=== PATIENT | male | born 1955 | race Caucasian/White ===

== ENCOUNTER 2016-11-03 07:48 | Observation (INO) ==
[2016-11-03] MEDS ORDERED: Tetracaine 0.5% OPTH 80 DROP/4 ML BOTTLE LEFT EYE ONE (08:03)
[2016-11-03] MEDS ORDERED: Fluorescein Sodium STRIP OP ONE (08:03)
--- NOTE | 2016-11-03 08:40 | Emergency Department Note ---
Disposition Clinical Impression: Symptomatic bradycardia, Atypical chest pain Corneal abrasion Qualifiers: Encounter type: initial encounter Laterality: left Qualified Code(s): S05.02XA - Injury of conjunctiva and corneal abrasion without foreign body, left eye, initial encounter Disposition: Admitted As Inpatient Condition: Fair Referrals: Papito Sun MD [Primary Care Provider] - Forms: ED Satisfaction Letter Time of Disposition: 10:45 Eye Problem HPI - General Chief complaint: ED Eye Problems Stated complaint: L eye pain Time Seen by Provider: 11/03/16 08:02 Source: patient Limitations: no limitations Nursing Notes Reviewed: Yes Vital Signs Reviewed: Yes - History of Present Illness HPI Narrative: Alert and oriented 61-year-old male originally presents for complaints of left side pain, redness, burning, and a foreign body sensation. He states that symptoms began yesterday evening and gradually worsened. He states that when he awoke this morning, his vision had greatly decreased out of the left eye and he had felt more pain and burning. He denies any purulent drainage or discharge. He denies any recent upper respiratory infections. He denies any activities that could have made him more prone to an ocular foreign body. Immediately After my time spent with him for an eye exam including fluorescein staining and a Hitchcock lamp inspection, the patient walked out of his room and told me that he is now experiencing substernal chest pain that radiates into the middle of his upper back. He states that he has a previous cardiac history including myocardial infarction. He denies any other associated symptoms. Specifically, he denies any shortness of breath, palpitations, fever, chills, nausea, diaphoresis, or any other concerns. He states this pain feels like a "squeezing" type pressure that he rates an 8 out of 10 on a 10 point scale. Pt Subjective Complaint: eye pain, eye redness, foreign body Onset (ago): day(s) (yesterday evening) Duration: gradually worsening Eye Symptoms: burning, redness, pain, foreign body sensation, blurry vision Mechanism: none Pain Severity: moderate If Pain, Quality: burning Associated symptoms: Reports: none Treatments Prior to Arrival: none - Related Data Patient Tetanus UTD: Yes Previous Rx's Medication Instructions Recorded Metaxalone [Skelaxin] 800 mg PO TID #30 tablet 01/01/15 Allergies Allergy/AdvReac Type Severity Reaction Status Date / Time ceftriaxone [From Rocephin] Allergy Hives Verified 11/03/16 08:01 celecoxib [From Celebrex] Allergy Hives Verified 11/03/16 08:01 methocarbamol [From Robaxin] Allergy Hives Verified 11/03/16 08:01 morphine Allergy Hives Verified 11/03/16 08:01 moxifloxacin [From Avelox] Allergy Hives Verified 11/03/16 08:01 Penicillins Allergy Swelling Verified 11/03/16 08:01 of Lip/Tongue/Throat Sulfa (Sulfonamide Allergy Hives Verified 11/03/16 08:01 Antibiotics) tramadol AdvReac Vomiting Verified 11/03/16 08:01 All systems ED: reviewed and negative except as stated. Constitutional: Denies: fever, chills, weakness, weight change Eyes: Reports: as per HPI, eye pain, vision change, other (Left eye redness). Denies: eye discharge ENT ED: Denies: ear pain, throat pain, dental pain, hearing loss, epistaxis, congestion, dysphagia Cardiovascular: Reports: as per HPI, chest pain. Denies: palpitations, dyspnea on exertion, edema, syncope Respiratory: Denies: cough, dyspnea, wheezes, hemoptysis, stridor Gastrointestinal: Denies: abdominal pain, nausea, vomiting, diarrhea, constipation, hematemesis, melena, hematochezia Genitourinary: Denies: urgency, dysuria, frequency, hematuria Musculoskeletal: Denies: back pain, neck pain, arthralgia, myalgia Integumentary: Denies: rash, abrasion, lesions Neurological: Denies: headache, weakness, numbness, paresthesias, confusion, abnormal gait, vertigo Psychiatric: Denies: anxiety, depression, suicidal thoughts, homicidal thoughts , auditory hallucinations, visual hallucinations Endocrine: Denies: fatigue Hematological/Lymphatic: Denies: easy bleeding, easy bruising Allergic/Immunologic: Denies: facial swelling, urticaria Past Medical History - Past Medical History Attestation: Yes The following information was validated with the patient. Source: patient, nursing notes reviewed Medical history: Reports: hyperlipidemia, hypertension, myocardial infarction, thyroid disease, other Surgical history: Reports: cholecystectomy, hip replacement, other Psychiatric history: Reports: anxiety - Social History Smoking Status: Former smoker Smokeless Tobacco Status: No Alcohol use: Reports: none Drug use: Reports: none Physical Exam - General Limitations: no limitations General appearance: alert, in no apparent distress - Head Head exam: atraumatic, normocephalic, normal inspection - Eye Eye exam: Present: PERRL, EOMI, conjunctival injection (Left eye). Absent: nystagmus - ENT ENT exam: mucous membranes moist - Neck Neck exam: Present: normal inspection, full ROM, trachea midline - Chest Chest inspection: Present: normal inspection, symmetric chest wall rise - Respiratory Respiratory exam: Present: normal lung sounds bilaterally. Absent: respiratory distress, wheezes, stridor, accessory muscle use, prolonged expiratory phase - Cardiovascular Cardiovascular exam: Present: regular rate, normal rhythm, normal heart sounds - Abdominal Exam Abdominal exam: Present: soft, Non-Tender, normal bowel sounds. Absent: tenderness, distention, guarding, rebound, rigidity - Extremities Exam Extremities exam: Present: normal inspection, full ROM. Absent: tenderness, pedal edema - Neurological Exam Neurological exam: Present: alert, oriented X3 - Psychiatric Psychiatric exam: Present: normal affect, normal mood - Skin Skin exam: Present: warm, dry, intact, normal color Course Course Narrative: Wood's lamp examination with foreseen staining reveals uptake that resembles a corneal abrasion that progresses laterally across the lateral aspect of the left iris to the medial aspect of the left iris. This abrasion does directly overlie the pupil. 0841: The patient states that his substernal chest pain began immediately after rising from a supine to a sitting position after the hitchcock lamp exam. An EKG was immediately obtained. Immediately after obtaining the EKG, the patient states to the ED senior mechanical technician that his pain has not resolved. Nonetheless, we will proceed with a cardiac workup. I have discussed this patient's case and laboratory results with Dr. Paez. Dr. Paez recommends admission to the hospitalist service for further evaluation of symptomatic bradycardia, especially given the patient's previous cardiac history and heart score of 4. 1010: I spoke with Dr. Shepherd of the hospitalist service. Dr. Shepherd accepts the patient under her service for further evaluation and observation of the patient's substernal chest pain, and symptomatic bradycardia. - Consultations Consultation #1: I spoke with Dr. Salazar, ophthalmology canceling and cutting control clerk. Dr. Salazar recommends erythromycin ointment every 2-[address] Salazar states that if the patient is discharged home, he will be happy to see him in the office. Dr. Salazar goes on to state that if the patient is admitted, he will attempt to see the patient in-house. I will notify Dr. Salazar of the patient's disposition. Time: 08:51 Vital Signs Temperature 97.4 F L 11/03/16 07:58 Pulse Rate 54 11/03/16 07:58 Respiratory Rate 16 11/03/16 07:58 Blood Pressure 170/83 11/03/16 07:58 O2 Sat by Pulse Oximetry 96 11/03/16 07:58 Temperature 97.4 F L 11/03/16 07:58 Pulse Rate 52 11/03/16 09:45 Respiratory Rate 16 11/03/16 09:45 Blood Pressure 156/104 11/03/16 09:45 O2 Sat by Pulse Oximetry 94 11/03/16 09:45 Oxygen Delivery Oxygen Delivery Room Air Eye - Medical Records Medical records reviewed: Yes I reviewed the patient's medical records. - Lab Data Lab results reviewed: Yes I reviewed the patient's lab results. Lab results narrative: Laboratory Last Values WBC 7.1 K/mcL (4.3-11.1) 11/03/16 08:47 RBC 5.13 M/mcL (4.19-5.50) 11/03/16 08:47 Hgb 15.4 g/dL (12.9-16.9) 11/03/16 08:47 Hct 47.4 % (37.5-50.1) 11/03/16 08:47 MCV 92.4 fL (83.0-100.0) 11/03/16 08:47 MCH 30.0 pg (28.0-33.3) 11/03/16 08:47 MCHC 32.5 g/dL (31.6-35.5) 11/03/16 08:47 RDW 14.1 % (11.5-14.5) 11/03/16 08:47 Plt Count 236 K/mcL (140-400) 11/03/16 08:47 MPV 9.8 fL (9.4-12.4) 11/03/16 08:47 Immature Gran % 0.3 % (0-4) 11/03/16 08:47 Seg Neutrophils % 65.8 % 11/03/16 08:47 Lymphocytes % 19.0 % 11/03/16 08:47 Monocytes % 11.6 % 11/03/16 08:47 Eosinophils % 2.3 % 11/03/16 08:47 Basophils % 1.0 % 11/03/16 08:47 Neutrophils # 4.7 K/mcL (1.6-8.9) 11/03/16 08:47 Lymphocytes # 1.3 K/mcL (0.6-4.6) 11/03/16 08:47 Monocytes # 0.8 K/mcL (0.0-1.3) 11/03/16 08:47 Eosinophils # 0.2 K/mcL (0.0-0.6) 11/03/16 08:47 Basophils # 0.1 K/mcL (0.0-0.2) 11/03/16 08:47 PT 11.3 Seconds (9.4-12.1) 11/03/16 08:47 INR 1.0 11/03/16 08:47 APTT 32.9 Seconds (26.0-36.0) 11/03/16 08:47 Sodium 139 mEq/L (136-145) 11/03/16 08:47 Potassium 4.1 mEq/L (3.5-4.5) 11/03/16 08:47 Chloride 105 mEq/L (98-109) 11/03/16 08:47 Carbon Dioxide 27 mEq/L (19-29) 11/03/16 08:47 BUN 14 mg/dL (8-26) 11/03/16 08:47 Creatinine 1.21 mg/dL (0.72-1.25) 11/03/16 08:47 Est GFR ( Amer) > 60 (> 60) 11/03/16 08:47 Est GFR (Non-Af Amer) > 60 (> 60) 11/03/16 08:47 BUN/Creatinine Ratio 12 (6-26) 11/03/16 08:47 Glucose 102 mg/dL (70-99) H 11/03/16 08:47 Calculated Osmolality 289 (280-300) 11/03/16 08:47 Calcium 9.5 mg/dL (8.6-10.8) 11/03/16 08:47 Troponin I 0.02 ng/mL (0-0.03) 11/03/16 08:47 B-Natriuretic Peptide 26 pg/mL (0-100) 11/03/16 08:47 Result diagrams: 11/03/16 08:47 11/03/16 08:47 Lab Results 11/03/16 11/03/16 11/03/16 Range/Units 08:47 08:47 08:47 WBC 7.1 (4.3-11.1) K/mcL RBC 5.13 (4.19-5.50) M/mcL Hgb 15.4 (12.9-16.9) g/dL Hct 47.4 (37.5-50.1) % MCV 92.4 (83.0-100.0) fL MCH 30.0 (28.0-33.3) pg MCHC 32.5 (31.6-35.5) g/dL RDW 14.1 (11.5-14.5) % Plt Count 236 (140-400) K/mcL MPV 9.8 (9.4-12.4) fL Immature Gran % 0.3 (0-4) % Seg Neutrophils % 65.8 % Lymphocytes % 19.0 % Monocytes % 11.6 % Eosinophils % 2.3 % Basophils % 1.0 % Neutrophils # 4.7 (1.6-8.9) K/mcL Lymphocytes # 1.3 (0.6-4.6) K/mcL Monocytes # 0.8 (0.0-1.3) K/mcL Eosinophils # 0.2 (0.0-0.6) K/mcL Basophils # 0.1 (0.0-0.2) K/mcL PT 11.3 (9.4-12.1) Seconds INR 1.0 APTT 32.9 (26.0-36.0) Seconds Sodium (136-145) mEq/L Potassium (3.5-4.5) mEq/L Chloride (98-109) mEq/L Carbon Dioxide (19-29) mEq/L BUN (8-26) mg/dL Creatinine (0.72-1.25) mg/dL Est GFR ( Amer) (> 60) Est GFR (Non-Af Amer) (> 60) BUN/Creatinine Ratio (6-26) Glucose (70-99) mg/dL Calculated Osmolality (280-300) Calcium (8.6-10.8) mg/dL Troponin I (0-0.03) ng/mL B-Natriuretic Peptide 26 (0-100) pg/mL 11/03/16 11/03/16 Range/Units 08:47 08:47 WBC (4.3-11.1) K/mcL RBC (4.19-5.50) M/mcL Hgb (12.9-16.9) g/dL Hct (37.5-50.1) % MCV (83.0-100.0) fL MCH (28.0-33.3) pg MCHC (31.6-35.5) g/dL RDW (11.5-14.5) % Plt Count (140-400) K/mcL MPV (9.4-12.4) fL Immature Gran % (0-4) % Seg Neutrophils % % Lymphocytes % % Monocytes % % Eosinophils % % Basophils % % Neutrophils # (1.6-8.9) K/mcL Lymphocytes # (0.6-4.6) K/mcL Monocytes # (0.0-1.3) K/mcL Eosinophils # (0.0-0.6) K/mcL Basophils # (0.0-0.2) K/mcL PT (9.4-12.1) Seconds INR APTT (26.0-36.0) Seconds Sodium 139 (136-145) mEq/L Potassium 4.1 (3.5-4.5) mEq/L Chloride 105 (98-109) mEq/L Carbon Dioxide 27 (19-29) mEq/L BUN 14 (8-26) mg/dL Creatinine 1.21 (0.72-1.25) mg/dL Est GFR ( Amer) > 60 (> 60) Est GFR (Non-Af Amer) > 60 (> 60) BUN/Creatinine Ratio 12 (6-26) Glucose 102 H (70-99) mg/dL Calculated Osmolality 289 (280-300) Calcium 9.5 (8.6-10.8) mg/dL Troponin I 0.02 (0-0.03) ng/mL B-Natriuretic Peptide (0-100) pg/mL - Radiology Data Radiology results reviewed: Yes I reviewed the patient's radiology results. Chest X-Ray 11/03/16 08:34 IMPRESSION: No evidence of acute cardiopulmonary disease. D/ / Matthew De La Torre MD / Matthew De La Torre MD Interpreting Provider: Matthew De La Torre MD - EKG Data EKG attestation: Yes I reviewed and interpreted this EKG. EKG results narrative: EKG reviewed by Dr. Paez as well. EKG shows a sinus bradycardia at a rate of 49 bpm. No ectopy. No STEMI. MI interval 173, QRS duration 107, QT/QTC 440 /411, P/R/T axes
[2016-11-03 08:54] LABS: Basophils # 0.1 K/mcL (0.0-0.2); Eosinophils # 0.2 K/mcL (0.0-0.6); Eosinophils % 2.3 %; Hematocrit 47.4 % (37.5-50.1); Hemoglobin 15.4 g/dL (12.9-16.9); Immature Granulocytes % 0.3 % (0-4); Lymphocytes # 1.3 K/mcL (0.6-4.6); Mean Corpuscular HGB Conc 32.5 g/dL (31.6-35.5); Mean Corpuscular Volume 92.4 fL (83.0-100.0); Mean Platelet Volume 9.8 fL (9.4-12.4); Monocytes # 0.8 K/mcL (0.0-1.3); Monocytes % 11.6 %; Neutrophils # 4.7 K/mcL (1.6-8.9); Platelet Count 236 K/mcL (140-400); Red Blood Count 5.13 M/mcL (4.19-5.50); Red Cell Distribution Width 14.1 % (11.5-14.5); Segmented Neutrophils % 65.8 %
[2016-11-03 09:00] LABS: Prothrombin Time 11.3 Seconds (9.4-12.1)
[2016-11-03 09:03] LABS: Activated Partial Thrombo Time 32.9 Seconds (26.0-36.0)
[2016-11-03 09:08] LABS: BUN/Creatinine Ratio 12 (6-26); Blood Urea Nitrogen 14 mg/dL (8-26); Calcium 9.5 mg/dL (8.6-10.8); Carbon Dioxide 27 mEq/L (19-29); Chloride 105 mEq/L (98-109); Glucose 102 mg/dL (70-99); Osmolality,Calculated 289 (280-300); Potassium 4.1 mEq/L (3.5-4.5); Sodium 139 mEq/L (136-145); eGFR For African Americans > 60 (> 60); eGFR For Non-African Americans > 60 (> 60)
[2016-11-03] MEDS ORDERED: Albuterol 2.5 MG/3 ML NEBULIZER IH PRN (11:22)
[2016-11-03] MEDS ORDERED: Acetaminophen 325 MG TABLET PO PRN (11:24)
[2016-11-03] MEDS ORDERED: Naloxone 0.4 MG/ML INJ IVP PRN (11:24)
--- NOTE | 2016-11-03 12:25 | Internal Med History&Physical ---
Date of Encounter: 11/03/16 Time of Encounter: 12:23 Assessment and Plan (1) Atypical chest pain Current visit: Yes Status: Acute Atypical, non-persistent patient with multiple risk factors, including hx of smoking, HLD, HTN, age, valvular disease Trend troponin Obtain ECHO Stress test a.m Initial EKG with sinus bradycardia, no ST segment changes Cardiology consult should there be an abnormal result (2) Corneal abrasion Current visit: Yes Status: Acute opthalmology contacted by ER Continue Erythromycin ointment No visual impairment Follow with Ophthalmology after discharge from hospital Qualifiers: Encounter type: initial encounter Laterality: left Qualified Code(s): S05.02XA - Injury of conjunctiva and corneal abrasion without foreign body, left eye, initial encounter (3) Symptomatic bradycardia Current visit: Yes Status: Acute Suspect oculo-cardiac reflex This may result from manipulation of his eyes during his eye exam patient is not on any BB at home Continue to monitor HR and BP (4) HTN (hypertension) Current visit: Yes Status: Chronic Controlled, continue home meds Qualifiers: Hypertension type: essential hypertension Qualified Code(s): I10 - Essential (primary) hypertension (5) COPD (chronic obstructive pulmonary disease) Current visit: Yes Status: Chronic Not in acute exacerbation Continue home meds Qualifiers: COPD type: unspecified COPD Qualified Code(s): J44.9 - Chronic obstructive pulmonary disease, unspecified (6) Atrial fibrillation Current visit: Yes Status: Chronic States patient has Afib in records from 2013 and on follow up with Prop Setter- Dr. Wan Patient denies knowing this he is on ASA only, continue same EKG in this admission with Sinus bradycardia Continue telemetry Discussion of anticoagulation therapy Qualifiers: Atrial fibrillation type: paroxysmal Qualified Code(s): I48.0 - Paroxysmal atrial fibrillation (7) Aortic valve defect Current visit: Yes Status: Chronic Patient with essentially absent S2 Suspect AR Follow ECHO and cardiology eval Internal Medicine - H&P: HPI Chief complaint: Chest pain Admitted From: Home Plans for Post Hospital Care: Home History of present illness: Mr. Gilbert is a 61 year old male Patient presented to the ER with complains of foreign body in the L eye and while being worked up developed one episode of chest pain, said to have been sharp, rated as 6-7/10. radiated to his back, and resolved spontaneously . He did not have any nausea, vomiting, diaphoresis, dizziness. he had one episode of bradycardia, captured on EKG as sinus, VR of 49. At time of review, chest pain had resolved He reports a history of intermittent chest pains for the past week for which he did not seek intervention because it was "mild". he denies shortness of breath, no leg swelling, no orthopnea, no PND. He denies abdominal, urologic or neurological symptoms Work up in the ER was unremarkable he is placed on observation for chest pain r/o ACS Patient reports hx of " a valve disorder", HLD, HTN, cHFpEF, Hypothyroidism, Chronic low back pain, Afib (noted on PCI since 2011, not on anticoagulation for unknown reasons) he had a negative cath in 2011, last ECHO per chart ws 2012 which showed mild aortic regurgication , normal EF and mild diastolic dysfunction He quit smoking several years ago Past Med Surg Social Fam HX - Past Medical History Medical history: hyperlipidemia, hypertension, myocardial infarction, thyroid disease, other Psychiatric history: anxiety - Past Surgical History Surgical History: cholecystectomy, hip replacement, other - Social History Smoking Status: Former smoker Smokeless Tobacco Status: No Alcohol use: none Drug use: none Internal Medicine - H&P: Meds Albuterol Neb [Proventil Neb] 2.5 mg IH Q4HR PRN 11/03/16 [History] Albuterol Sulfate [Ventolin Hfa] 2 puff IH Q4H PRN 11/03/16 [History] Aspirin 81 mg PO DAILY 11/03/16 [History] Atorvastatin Calcium [Lipitor] 80 mg PO HS 11/03/16 [History] Cetirizine HCl [All Day Allergy] 10 mg PO DAILY 11/03/16 [History] Cholestyramine 4 gm PO BIDAC 11/03/16 [History] DULoxetine [Cymbalta] 30 mg PO DAILY 11/03/16 [History] Etodolac [Lodine] 400 mg PO BID PRN 11/03/16 [History] Fluticasone Propionate Nasal [Flonase] 2 spray NS DAILY 11/03/16 [History] Fluticasone/Vilanterol [Breo Ellipta 200-25 Mcg INH] 1 puff IH DAILY 11/03/16 [ History] Furosemide [Lasix] 20 mg PO DAILY 11/03/16 [History] Gabapentin [Neurontin] 600 mg PO TID 11/03/16 [History] Isosorbide MONOnitrate (24 HR) [Imdur] 60 mg PO DAILY 11/03/16 [History] Levothyroxine [Synthroid] 112 mcg PO 0630 11/03/16 [History] Lisinopril [Zestril] 5 mg PO DAILY 11/03/16 [History] Montelukast [Singulair] 10 mg PO DAILY 11/03/16 [History] Nitroglycerin [Nitrostat] 0.4 mg SL AD PRN 11/03/16 [History] Omeprazole [PriLOSEC] 20 mg PO DAILY 11/03/16 [History] Oxycodone HCl/Acetaminophen [Percocet 7.5-325 mg Tablet] 1 tab PO Q8-12H PRN 07/18 [History] Allergies ceftriaxone [From Rocephin] Allergy (Verified 11/03/16 08:01) Hives celecoxib [From Celebrex] Allergy (Verified 11/03/16 08:01) Hives methocarbamol [From Robaxin] Allergy (Verified 11/03/16 08:01) Hives morphine Allergy (Verified 11/03/16 08:01) Hives moxifloxacin [From Avelox] Allergy (Verified 11/03/16 08:01) Hives Penicillins Allergy (Verified 11/03/16 08:01) Swelling of Lip/Tongue/Throat Sulfa (Sulfonamide Antibiotics) Allergy (Verified 11/03/16 08:01) Hives tramadol Adverse Reaction (Verified 11/03/16 08:01) Vomiting All Systems PM: A 10-system review of systems was performed and is negative for pertinent findings except as documented above in the HPI. - Constitutional Constitutional: no chills, no fever(s), no night sweats - EENT Eyes: irritation Nose, mouth and throat: no dysphagia, no nasal discharge, no neck pain, no sore throat - Cardiovascular Cardiovascular ROS IM: as per HPI - Respiratory Respiratory: as per HPI - Gastrointestinal Gastrointestinal: no abdominal pain, no diarrhea, no hematemesis, no hematochezia, no melena, no nausea, no vomiting - Musculoskeletal Musculoskeletal ROS IM: back pain - Integumentary Integumentary IM: no rash, no unusual bruising - Neurological Neurological ROS: no confusion, no convulsions, no focal weakness, no numbness, no tingling, no tremor(s) - Hematologic/Lymphatic Hematologic/Lymphatic: no easy bruising - Constitutional Vitals: Temp Pulse Resp BP Pulse Ox 97.3 F L 47 16 145/83 97 11/03/16 11:45 11/03/16 11:45 11/03/16 11:45 11/03/16 11:45 11/03/16 11:45 General appearance: Present: A&O X 3, pleasant, no acute distress - Head Head exam: Present: atraumatic, normocephalic - Eye Eye exam: Present: PERRL, conjuntiva pink, sclera anicteric Pupils: Present: PERRL - Neck Neck exam general surgery: Present: supple, trachea midline. Absent: lymphadenopathy - Respiratory Respiratory exam: Present: CTAB. Absent: accessory muscle use, rales, rhonchi, wheezes - Cardiovascular Cardiovascular exam: Present: RRR, +S1, +S2 (Very soft, almost inaudible S2). Absent: diastolic murmur, gallop, rubs, systolic murmur - GI/Abdominal GI/Abdominal exam: Present: normal bowel sounds, soft, no peritoneal signs. Absent: distended, tenderness - Extremities Exam Extremities exam: Present: warm, radial pulses palpable and symetrical. Absent : calf tenderness, cyanotic, pedal edema - Back Exam Additional comments: Scoliosis - Neurological Exam Neurological exam: Present: alert, CN II-XII intact, oriented X3, no focal deficits. Absent: pronater drift, facial droop, speech deficit - Skin Skin exam: Present: dry, intact Internal Med - H&P Results - Labs CBC & Chem 7: 11/03/16 08:47 11/03/16 08:47
[2016-11-03] MEDS: *HR* OxyCODONE/APAP 7.5/325 TABLET PO PRN (12:54)
[2016-11-03] MEDS: Erythromycin OPTH Oint LEFT EYE SCH ×3 (15:22→20:20)
[2016-11-03] MEDS: Gabapentin 300 MG CAPSULE PO SCH ×2 (15:27→20:19)
[2016-11-03] MEDS: Cholestyramine 4 GM POWD.PACK PO SCH (15:28)
[2016-11-04] MEDS ORDERED: Regadenoson 0.4 MG/5 ML SYRINGE IVP ONE (06:11)
[2016-11-04] MEDS: Cholestyramine 4 GM POWD.PACK PO SCH ×2 (10:00→15:18)
[2016-11-04] MEDS: Erythromycin OPTH Oint LEFT EYE SCH ×4 (10:00→20:49)
[2016-11-04] MEDS: Fluticasone Propionate Nasal 50 MCG/SPRAY BOTTLE NS SCH (11:52)
[2016-11-04] MEDS: Loratadine 10 MG TABLET PO SCH (11:54)
[2016-11-04] MEDS: Aspirin 81 MG TAB.CHEW PO SCH (11:54)
[2016-11-04] MEDS: Gabapentin 300 MG CAPSULE PO SCH ×3 (11:54→20:48)
[2016-11-04] MEDS: *HR* OxyCODONE/APAP 7.5/325 TABLET PO PRN (11:54)
[2016-11-04] MEDS: Furosemide 20 MG TABLET PO SCH (11:54)
[2016-11-04] MEDS: Isosorbide MONOnitrate (24 HR) 60 MG TAB.ER.24H PO SCH (11:54)
[2016-11-04] MEDS: (Fluticasone/Vilanterol [Breo Ellipta 200-25 Mcg Inh]) IH SCH (11:55)
--- NOTE | 2016-11-04 12:53 | Nuclear Medicine Stress Report ---
Regadenoson Nuclear Stress Name: Fausto Gilbert Date of Study: 11/04/2016 Date: 1955 Ht: 68.0 in Medical Record#: [id number] Age: 61 Wt: 215.0 lb Gender: Male Order #: [id number] Location: [facility] Room: [facility] Supervising Provider: Jeramie Garrison CNP Reading Physician: Rivera Singh DO, FAC, FASAK Ordering Physician: Leidy Bond CNP Primary Care Physician: Papito Sun MD Stress Technologist: Alexia Campos RRT Superintendent Storage Area: Blaise Peterson Impression: Pharmacologic stress ECG is non-diagnostic for ischemia due to submaximal HR. Gated EF = 55%. Medium sized, moderate intensity, reversible perfusion defect involving the basal to mid inferior and adjacent inferoseptal and inferolateral segments. Findings are consistent with ischemia. Ordering provider notified via [email or web address]. History: Hypertension Hypercholesteremia Stress Test Summary: Stress Test Type: Pharmacologic Regadenoson 0.4mg/5ml given IV Baseline Information: Initial Heart Rate: 50 Blood Pressure: 132/82 Stress Information: Test Terminated Due to (primary): As per protocol Maximum Blood Pressure: 118/60 Maximum Heart Rate: 79 Percent Maximum Heart Rate Achieved: 50 Double Product: 9322 METS Reached: 1 Symptoms: No chest symptoms Nuclear Summary: SPECT myocardial perfusion imaging using Tc99m Sestamibi given intravenously was performed at rest and following cardiac stress testing. The resting images were obtained following initial dose of 10.7 mCi. Following stress an additional dose of 34.8 mCi was given at peak exercise or 30 seconds post regadenoson infusion. Medication Given: Time Medication Dose Units Route Findings: Stress Note * Resting ECG demonstrated normal sinus rhythm. * No baseline arrhythmias were noted. * Pharmacologic stress ECG is non-diagnostic for ischemia due to submaximal HR. * No arrhythmias were noted during stress. * Patient had no chest pain during stress. Hemodynamic responses * Normal hemodynamic responses to pharmacologic stress. Study Quality * Study quality is average. Gated EF % * Gated EF = 55%. Left Ventricle * The left ventricle is not dilated. * LVEDV = 108 mL. NORMALS * Normal wall motion. * Normal Segmental Perfusion in rest. Inferior Perfusion Stress * The basal to md inferior and adjacent inferoseptal/inferolateral segments show a moderate reduction in perfusion. TID * No evidence of transient ischemic dilatation. TID ratio * TID ratio = 0.95. Lung Uptake * There is no evidence of increase lung uptake. Updated by Rivera Singh DO, DEANA, REBECA, USMAN on 11/04/2016 12:46:56 PM electronically signed on 11/04/2016 12:48:27 PM with status of Final
--- NOTE | 2016-11-04 14:34 | Internal Med Progress Note ---
Date of Encounter: 11/04/16 Time of Encounter: 11:40 - Assessment and plan (1) Symptomatic bradycardia Current Visit: Yes Status: Acute Assessment and plan: Patient reports couple month history of midsternal chest tightness with reading to the left jaw, shortness of breath, and feeling clammy. Patient had episode as this lasting a couple of minutes yesterday while in the emergency department. He told staff of chest pain, he was put on monitor and had an EKG showing bradycardia. He noticed that when his pulse came up into the high 50s and low 60s, the pressure resolved. Echocardiogram showed LVEF of 50% with normal LV chamber size and thickness although they were not well visualized. There is normal diastolic dysfunction and normal RV structure and function. Mild Aortic regurgitation was noted. Stress test showed gated EF of 55% with a medium-size, moderate intensity, reversible perfusion defect involving the basal to mid inferior wall and adjacent inferior septal and inferolateral segments. Dr. Singh and I discussed this. Troponins have been negative Patient will be nothing by mouth tonight after midnight for LHC in the morning. Patient and family are aware, questions answered. Continue telemetry Treat chest pain when necessary Continue medications. LHC/cardiology consult in the morning. Chest X-Ray 11/03/16 08:34 IMPRESSION: No evidence of acute cardiopulmonary disease. D/ / Matthew De La Torre MD / Matthew De La Torre MD Interpreting Provider: Matthew De La Torre MD (2) Atypical chest pain Current Visit: Yes Status: Acute Assessment and plan: Patient states initial onset was in 2001 after his OR. It has become increasingly worse over the last couple of months. He states that the pain can last anywhere from 2-3 minutes to 15-20 minutes. Pain is not worse with movement, eating, inspiration, or palpitation. Plan as above (3) Corneal abrasion Current Visit: Yes Status: Acute Assessment and plan: Patient was in the emergency department for corneal abrasion. Ophthalmology was consulted by the emergency department. Patient is not wearing a patch, there is no corneal injection, no vision disturbance. Patient denies pain, there is no drainage. Continue erythromycin ointment and follow-up with ophthalmology after discharge. Qualifiers: Encounter type: initial encounter Laterality: left Qualified Code(s): S05.02XA - Injury of conjunctiva and corneal abrasion without foreign body, left eye, initial encounter (4) HTN (hypertension) Current Visit: Yes Status: Chronic Assessment and plan: Chronic. Goal in inpatient setting. Continue home medication. Qualifiers: Hypertension type: essential hypertension Qualified Code(s): I10 - Essential (primary) hypertension (5) COPD (chronic obstructive pulmonary disease) Current Visit: Yes Status: Chronic Assessment and plan: No acute exacerbation. Continue home medications. Titrate oxygen as needed to maintain sats greater than 92% Nebulizer treatment as needed. Qualifiers: COPD type: unspecified COPD Qualified Code(s): J44.9 - Chronic obstructive pulmonary disease, unspecified (6) Atrial fibrillation Current Visit: Yes Status: Chronic Assessment and plan: Patient is unaware of having A. fib. He is on aspirin. Normal sinus rhythm on the monitor at this time. Cardiology consult tomorrow. Continue telemetry Qualifiers: Atrial fibrillation type: paroxysmal Qualified Code(s): I48.0 - Paroxysmal atrial fibrillation (7) Aortic valve defect Current Visit: Yes Status: Chronic Assessment and plan: AR noted on echocardiogram. Cardiology consult in the morning - Time Spent With Patient less than 15 minutes - Subjective Interval history: Patient reports approximate 2-3 month history of midsternal chest tightness with radiation to the left jaw, shortness of breath, and feeling clammy. Patient states that it happens a couple of times a week and states that it can last anywhere from 2-3 minutes to 15-20 minutes. He states initially the pain started 2002 after he had his OR, but was sporadic. He states that he has become more frequent over the last couple of months. He says that he had chest pain yesterday after he sat up from a lying position while he was in the emergency room. He was seen in the emergency room for corneal abrasion and was found to be bradycardic with his chest pain. He said that he noticed that the chest pain stopped when his pulse currently the high 50s and 60s. Today I did hear S1 and S2, rhythm was regular, there was no gallop, click, murmur noted. Patient denies chest pain at this time. Echocardiogram was negative, stress test showed area of ischemia. Cardiology consult was already in. Patient will be nothing by mouth after midnight tonight for [facility] in the morning. 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 - Constitutional Vitals: Temp Pulse Resp BP Pulse Ox 97.5 F L 59 16 140/77 98 11/04/16 12:15 11/04/16 12:15 11/04/16 13:44 11/04/16 12:15 11/04/16 13:44 General appearance: Present: A&O X 3, pleasant, no acute distress, answers questions appropriately - Head Head exam: Present: normal inspection - Eye Eye exam: Present: normal appearance, conjuntiva pink - ENT ENT exam: Present: mucous membranes moist, normal exam - Neck Neck exam general surgery: Present: normal inspection. Absent: lymphadenopathy , tenderness - Respiratory Respiratory exam: Present: decreased breath sounds, CTAB. Absent: chest wall tenderness, rales, respiratory distress, rhonchi, stridor, wheezes - Cardiovascular Cardiovascular exam: Present: RRR, +S1, +S2. Absent: bradycardia, clicks, diastolic murmur, irregular rhythm, systolic murmur, tachycardia - GI/Abdominal GI/Abdominal exam: Present: normal bowel sounds, soft. Absent: hepatomegaly, tenderness - Extremities Exam Extremities exam: Present: normal inspection, warm, radial pulses palpable and symetrical. Absent: pedal edema, tenderness - Neurological Exam Neurological exam: Present: alert, oriented X3. Absent: facial droop, speech deficit Internal Medicine: Result - Labs CBC & Chem 7: 11/03/16 08:47 11/03/16 08:47 Labs: Cardiac Enzymes 11/03/16 11/03/16 Range/Units 13:42 20:44 Troponin I 0.00 0.01 (0-0.03) ng/mL - ABG Interpretation ABG results: PT/INR, D-dimer PT 11.3 Seconds (9.4-12.1) 11/03/16 08:47 Consult Discharge Plan - Plan Referrals: Papito Sun MD [Primary Care Provider] -
[2016-11-05] MEDS: Cholestyramine 4 GM POWD.PACK PO SCH ×2 (07:30→16:26)
[2016-11-05] MEDS: Gabapentin 300 MG CAPSULE PO SCH ×3 (07:52→20:15)
[2016-11-05] MEDS: Loratadine 10 MG TABLET PO SCH (07:53)
[2016-11-05] MEDS: Erythromycin OPTH Oint LEFT EYE SCH ×4 (07:53→20:15)
[2016-11-05] MEDS: Furosemide 20 MG TABLET PO SCH (07:53)
[2016-11-05] MEDS: *HR* OxyCODONE/APAP 7.5/325 TABLET PO PRN ×2 (07:54→16:27)
[2016-11-05] MEDS: Isosorbide MONOnitrate (24 HR) 60 MG TAB.ER.24H PO SCH (07:54)
[2016-11-05] MEDS: Aspirin 81 MG TAB.CHEW PO SCH (07:54)
[2016-11-05] MEDS: (Fluticasone/Vilanterol [Breo Ellipta 200-25 Mcg Inh]) IH SCH (08:00)
[2016-11-05] MEDS: Fluticasone Propionate Nasal 50 MCG/SPRAY BOTTLE NS SCH (08:02)
--- NOTE | 2016-11-05 09:26 | Pre-Sedation Evaluation ---
Pre-sedation evaluation - Pre-sedation checklist Date of procedure: 11/05/16 Procedure: heart cath Recent Vitals: Last Vital Signs Temp 98.0 F 11/05/16 07:51 Pulse 50 11/05/16 07:51 Resp 14 11/05/16 07:51 BP 131/77 11/05/16 07:51 Pulse Ox 96 11/05/16 07:51 H&P (including ROS) documented in medical record: Yes Previous reaction to sedatives/anesthetics: No Dietary Status: NPO after Midnight Dentition: No loose teeth or bridges ASA Classification *see protocol: CLASS II-Mild systemic disease Plan of Care: Pt appropriate candidate for procedure/moderate/conscious sedation , Risks/benefits of procedure/sedation discussed w/ patient/family
--- NOTE | 2016-11-05 10:09 | Cardiology Consult Note ---
<Evens Jang R - Last Filed: 11/05/16 10:05> Date of Encounter: 11/05/16 Time of Encounter: 10:05 Assessment and Plan (1) Abnormal stress test Current Visit: Yes Status: Acute Stress test yesterday moderate sized moderate intensity reversible perfusion defect involving basal-mid inferior and adjacent inferoseptal and inferolateral segments consistent with ischemia. LHC with minimal/mild disease in 2013 at [facility]. Given new stress abnormality, recommend [facility] to further evaluate. R/B/A discussed. Pt agrees to proceed. LHC today. ASA, Statin. No BB due to bradycardia. Troponins negative x 3. One episode of CP in ED without recurrence. (2) Sinus bradycardia Current Visit: Yes Status: Acute 24 hr tele AVG HR 60, lowest HR 45 yesterday morning at 10AM. Nocturnal bradycardia in 40s, but known untreated KAMAR. Recommend treatment. Currently stable with no significant bradycardia to warrant PPM. Avoid AV jadiel blockers. C today. (3) Atrial fibrillation Current Visit: Yes Status: Chronic Hx of A-Fib, appears to be maintaining SR during stay. CHADSVASC 1 (HTN). ASA only. Qualifiers: Atrial fibrillation type: paroxysmal Qualified Code(s): I48.0 - Paroxysmal atrial fibrillation Discussion w patient/family: The assessment and plan as outlined above was discussed with the patient and/or family members who expressed understanding and agreement. All questions were answered. Thank you for involving us in the care of your patient. Please call with any questions. I will discuss all the above with Dr. Wan and make changes as necessary. History of Present Illness Consult date: 11/05/16 Requesting physician: Rosalia Rosas Consult reason: abnormal stress Chief complaint: chest pain History of present illness: Mr. Gilbert is a 61 year old male with PMH of untreated KAMAR, A-Fib on ASA only, HTN, HLD that presented to the ER with complains of foreign body in the L eye and while being worked up developed one episode of chest pain, said to have been sharp, rated as 6-7/10. radiated to his back and right jaw, and resolved spontaneously. He had an episode of bradycardia with HR in 40s at that time and CP resolved when HR increased. No recurrence of chest pain. Troponins negative x 4. He had LHC in 2013 with minimal disease at [facility]. Stress test yesterday showed gated EF 55%, moderate sized, moderate intensity reversible perfusion defect involving basal-mid inferior and adjacent inferoseptal and inferolateral segments consistent with ischemia. 24 hr tele AVG HR 60, minimum HR 45 at 10AM yesterday. Echo EF 50%, technically suboptimal due to poor windows. Mild AR. Past Med Surg Social Fam HX - Past Medical History Medical history: hyperlipidemia, hypertension, myocardial infarction, thyroid disease, other Psychiatric history: anxiety - Past Surgical History Surgical History: cholecystectomy, hip replacement, other - Social History Smoking Status: Former smoker Smokeless Tobacco Status: No Alcohol use: none Drug use: none Medications and Allergies Albuterol Neb [Proventil Neb] 2.5 mg IH Q4HR PRN 11/03/16 [History] Albuterol Sulfate [Ventolin Hfa] 2 puff IH Q4H PRN 11/03/16 [History] Aspirin 81 mg PO DAILY 11/03/16 [History] Atorvastatin Calcium [Lipitor] 80 mg PO HS 11/03/16 [History] Cetirizine HCl [All Day Allergy] 10 mg PO DAILY 11/03/16 [History] Cholestyramine 4 gm PO BIDAC 11/03/16 [History] DULoxetine [Cymbalta] 30 mg PO DAILY 11/03/16 [History] Etodolac [Lodine] 400 mg PO BID PRN 11/03/16 [History] Fluticasone Propionate Nasal [Flonase] 2 spray NS DAILY 11/03/16 [History] Fluticasone/Vilanterol [Breo Ellipta 200-25 Mcg INH] 1 puff IH DAILY 11/03/16 [ History] Furosemide [Lasix] 20 mg PO DAILY 11/03/16 [History] Gabapentin [Neurontin] 600 mg PO TID 11/03/16 [History] Isosorbide MONOnitrate (24 HR) [Imdur] 60 mg PO DAILY 11/03/16 [History] Levothyroxine [Synthroid] 112 mcg PO 0630 11/03/16 [History] Lisinopril [Zestril] 5 mg PO DAILY 11/03/16 [History] Montelukast [Singulair] 10 mg PO DAILY 11/03/16 [History] Nitroglycerin [Nitrostat] 0.4 mg SL AD PRN 11/03/16 [History] Omeprazole [PriLOSEC] 20 mg PO DAILY 11/03/16 [History] Oxycodone HCl/Acetaminophen [Percocet 7.5-325 mg Tablet] 1 tab PO Q8-12H PRN 07/18 [History] Allergies ceftriaxone [From Rocephin] Allergy (Verified 11/03/16 08:01) Hives celecoxib [From Celebrex] Allergy (Verified 11/03/16 08:01) Hives methocarbamol [From Robaxin] Allergy (Verified 11/03/16 08:01) Hives morphine Allergy (Verified 11/03/16 08:01) Hives moxifloxacin [From Avelox] Allergy (Verified 11/03/16 08:01) Hives Penicillins Allergy (Verified 11/03/16 08:01) Swelling of Lip/Tongue/Throat Sulfa (Sulfonamide Antibiotics) Allergy (Verified 11/03/16 08:01) Hives tramadol Adverse Reaction (Verified 11/03/16 08:01) Vomiting All Systems Review: A 10-system review of systems was performed and is negative for pertinent findings except as documented above in the HPI. - Cardiovascular Cardiovascular: as per HPI, chest pain at rest, radiating jaw, neck or arm pain Physical Examination Vital Signs, Last 4 Hours Temp Pulse Resp BP Pulse Ox 11/05/16 07:51 98.0 F 50 14 131/77 96 Vital Signs Temp Pulse Resp BP Pulse Ox 11/05/16 07:51 98.0 F 50 14 131/77 96 11/05/16 03:19 97.8 F 55 16 96/60 96 11/04/16 23:11 97.6 F 55 16 101/57 94 11/04/16 20:45 96 11/04/16 19:09 97.6 F 65 16 113/68 96 11/04/16 16:03 97.8 F 61 15 115/74 96 11/04/16 13:44 16 98 11/04/16 12:15 97.5 F L 59 16 140/77 97 Intake and Output 11/04/16 11/05/16 11/05/16 23:59 07:59 15:59 Other: Weight 97.995 kg Blood Glucose* 97 90 Patient Weight 11/05/16 23:59 Weight 97.995 kg General: Conversant, No Apparent Distress HEENT: Atraumatic, Normocephaly, Mucus Membranes Moist Neck: No JVD, Normal carotid pulses Cardiac: Reg Rate and Rhythm, Normal S1 and S2, No Murmur Lungs: Normal Breath Sounds, No Wheeze, Rales, Rhonchi Neuro: Alert and responsive, No focal deficits noted Abdomen: Soft, Non-Tender Skin: No rashes noted on visualized skin Musculoskeletal: No Chest Wall Tenderness Extremities: No Clubbing, No Cyanosis, No Edema, Normal Pulses Results 11/03/16 08:47 11/03/16 08:47 Active Medications Acetaminophen (Tylenol) 650 mg PO Q6HR PRN PRN Reason: Mild Pain (1-3) Stop: 05/05/17 11:25 Albuterol Sulfate (Proventil Neb) 2.5 mg IH Q4HR PRN; Protocol PRN Reason: Shortness Of Breath Stop: 05/05/17 11:23 Albuterol Sulfate (Albuterol Inhaler) 2 puff IH Q4H PRN PRN Reason: Shortness Of Breath Stop: 05/05/17 11:23 Last Admin: 11/04/16 13:43 Dose: 2 puff Aspirin (Aspirin) 81 mg PO DAILY [facility] Stop: 05/06/17 09:01 Last Admin: 11/05/16 07:54 Dose: 81 mg Atorvastatin Calcium (Lipitor) 80 mg PO HS [facility] Stop: 05/05/17 21:01 Last Admin: 11/04/16 20:48 Dose: 80 mg Cholestyramine Resin (Cholestyramine) 4 gm PO BIDAC [facility] Stop: 05/05/17 16:31 Last Admin: 11/05/16 07:30 Dose: Not Given Duloxetine HCl (Cymbalta) 30 mg PO DAILY [facility] Stop: 05/06/17 09:01 Last Admin: 11/05/16 07:53 Dose: 30 mg Erythromycin (Erythromycin Opth Oint) 1 appl LEFT EYE Q4HWA [facility] Stop: 05/05/17 12:01 Last Admin: 11/05/16 07:53 Dose: 1 appl Fluticasone Propionate (Flonase) 50 mcg NS DAILY [facility] PRN Reason: Protocol Stop: 05/06/17 09:01 Last Admin: 11/05/16 08:02 Dose: Not Given Furosemide (Lasix) 20 mg PO DAILY [facility] Stop: 05/06/17 09:01 Last Admin: 11/05/16 07:53 Dose: 20 mg Gabapentin (Neurontin) 600 mg PO TID [facility] Stop: 05/05/17 15:01 Last Admin: 11/05/16 07:52 Dose: 600 mg Isosorbide Mononitrate (Imdur) 60 mg PO DAILY [facility] Stop: 05/06/17 09:01 Last Admin: 11/05/16 07:54 Dose: 60 mg Levothyroxine Sodium (Synthroid) 112 mcg PO 0630 [facility] Stop: 05/06/17 06:31 Last Admin: 11/05/16 04:57 Dose: 112 mcg Lisinopril (Zestril) 5 mg PO DAILY [facility] PRN Reason: Protocol Stop: 05/06/17 09:01 Last Admin: 11/05/16 07:53 Dose: 5 mg Loratadine (Claritin) 10 mg PO DAILY [facility] Stop: 05/06/17 09:01 Last Admin: 11/05/16 07:53 Dose: 10 mg Montelukast Sodium (Singulair) 10 mg PO DAILY [facility] Stop: 05/06/17 09:01 Last Admin: 11/05/16 07:54 Dose: 10 mg Naloxone HCl (Narcan) 0.4 mg IVP Q2MIN PRN PRN Reason: Opioid Reversal Stop: 05/05/17 11:25 Omeprazole (Prilosec) 20 mg PO 0630 [facility] PRN Reason: Protocol Stop: 05/06/17 06:31 Last Admin: 11/05/16 04:57 Dose: 20 mg Oxycodone/Acetaminophen (Percocet 7.5/325) 1 each PO Q8H PRN PRN Reason: Moderate Pain Stop: 05/05/17 11:23 Last Admin: 11/05/16 07:54 Dose: 1 each Pharmacy Profile Note (Patient Taking Own Medication) 0 each IH DAILY [facility] Stop: 05/06/17 09:01 Last Admin: 11/05/16 08:00 Dose: Not Given - Imaging and Cardiology Stress Test: report reviewed Echo: report reviewed - EKG Interpretation EKG results cardiology: personally reviewed (Sinus oumar, HR 49), other (24 hr tele AVG HR 60, SR, no significant pauses, lowest HR 45) Consult Discharge Plan - Plan Referrals: Papito Sun MD [Primary Care Provider] - <Armida Wan - Last Filed: 11/05/16 10:20> Date of Encounter: 11/05/16 Assessment and Plan Discussion w patient/family: The assessment and plan as outlined above was discussed with the patient and/or family members who expressed understanding and agreement. All questions were answered. Thank you for involving us in the care of your patient. Please call with any questions. History of Present Illness History of present illness: Mr. Gilbert is a 61 year old male All Systems Review: A 10-system review of systems was performed and is negative for pertinent findings except as documented above in the HPI. Physical Examination Vital Signs, Last 4 Hours Temp Pulse Resp BP Pulse Ox 11/05/16 07:51 98.0 F 50 14 131/77 96 Results 11/03/16 08:47 11/03/16 08:47 - Attending Attestation I examined this patient and my medical decision-making was reviewed with the LOGGING CREW SUPERVISOR/PA/Advanced Practice Nurse/Resident Physician. I agree with the documented findings, disposition and treatment plan. Mr. Gilbert is known to me from the outpatient setting. Apparently he came in with a corneal abrasion and complained of chest pain, underwent a stress test which resulted abnormal. The patient and I discussed these findings. He does have known CAD (cath 2011, 2013) and risk factors (male gender, HTN, HPL, borderline DM, history of smoking). We discussed consideration of proceeding with LHC for definitive diagnosis of pain. The R/B/A of proceeding with LHC were discussed. The patient expressed understanding and consent to proceed.
--- NOTE | 2016-11-05 12:36 | Electrocardiograph Report ---
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 : 1955 Requested By: Christophe Hilario Order Number: [id number] Reading MD: Sudeep Bobo MD Measurements Intervals [place] Rate: 49 P: 19 AK: 173 QRS: -18 QRSD: 107 T: -12 QT: 440 QTc: 411 Interpretive Statements SINUS BRADYCARDIA Electronically Signed On 11-05-2016 12:34:31 EDT by Sudeep Bobo MD
[2016-11-05] MEDS ORDERED: *HR* Midazolam HCl 2 MG/2 ML VIAL ONE (14:08)
[2016-11-05] MEDS ORDERED: *HR* FentaNYL (PF) 100 MCG/2 ML VIAL ONE (14:08)
[2016-11-05] MEDS ORDERED: *HR* Heparin 10,000 UNIT/10 ML VIAL ONE (14:09)
[2016-11-05] MEDS ORDERED: 0.9 % Sodium Chloride 2,000 ML ONE (14:09)
[2016-11-05] MEDS ORDERED: Heparin 1,000 UNITS/500 mL NS 500 ML ONE (14:09)
[2016-11-05] MEDS ORDERED: Verapamil 5 MG/2 ML VIAL ONE (14:09)
[2016-11-05] MEDS ORDERED: Nitroglycerin 1,000 MCG/10 ML VIAL IV ONE (14:09)
--- NOTE | 2016-11-05 15:44 | Event Note ---
Date of Encounter: 11/05/16 Time of Encounter: 15:43 - Cardiology Event Note Mild/nonobstructive CAD on C. No intervention warranted. Cardiology signing off. Reconsult PRN. Follow-up as outpt in 3-4 weeks. Will coordinate.
--- NOTE | 2016-11-05 15:53 | Invasive Diagnostic Lab Proc ---
Name: Fausto Gilbert Date of Study: 11/05/2016 Date: 1955 Ht: 68.1in Medical Record#: [id number] Age: 61 Wt: 216.00lb Gender: Male BSA: 2.11 Order #: [id number] BMI: 32.74 Physicians Procedure Physician: Sudeep Bobo MD, [facility] Referring MD: Referring MD: Staff Name Position Time In Cookie Dueñas RN Customer Engineer 02:26 PM Lola Brown RT (R) Scrub 02:26 PM Yann Oswald RT (R) Monitor 02:26 PM Indications Indication Abnormal Test - Stress Procedures Performed Procedure L HRT ARTERY/VENTRICLE ANGIO Pre-Procedure Checklist Informed consent is complete signed and on chart. H\\T\\P is on chart. ID band is on and ID verified with patient. Patient NPO for procedure The procedure was described for the patient and questions were answered. Blood Pressure: 159/90 ECG is on chart. Rhythm: Sinus Bradycardia Plan of Care Patient will tolerate the procedure without complications. Adequate level of comfort will be maintained. Hemodynamics will remain stable Patient will recover from procedure without complications. Respiratory function will be maintained. Cardiac rhythm will remain stable. Patient temperature will be maintained. Patient and/or family have verbalized understanding of the procedure. Patient Education Chief Complaint/Reason for Test: Cardiac Cath Developmental Category: Adult (18-64 years) Developmentally Appropriate for Age: Yes Learning Barriers: None Education Needs: Procedure Education Method: Verbal Information Taught: Cardiac Cath Educational Evaluation: Able to repeat information Intravenous Access Time IV Size Location DC'd Fluid/Drip Rate Units RN 03:09 PM 20g 1 05/07" Patent On Arrival Lt Antecubital 0.9NaCl 25 Cookie Dueñas RN Allergies Nabumetone PCN (penicillin) SULFA (sulfonamide) Celecoxib morphine Penicillins Sulfa (Sulfonamide Antibiotics) methocarbamol tramadol Vital Signs Time BP (mmHg) HR (bpm) O2 Sat. RR (bpm) LOC 02:58 PM 159 / 90 50 99 % 16 5 = Fully awake and oriented or at pre-proc level 02:58 PM / % 4 = Oriented but drowsy 03:14 PM / % 4 = Oriented but drowsy 03:09 PM 159 / 90 46 99 % 16 03:14 PM 126 / 81 53 94 % 12 03:19 PM 121 / 81 52 95 % 12 03:24 PM 126 / 80 51 95 % 10 03:29 PM 135 / 80 57 96 % 24 03:34 PM 141 / 87 60 94 % 15 03:39 PM 134 / 76 56 97 % 5 03:29 PM / % 5 = Fully awake and oriented or at pre-proc level Procedural Medications Time Medication Dose Units Method Given By 03:07 PM Versed 2 mg Intravenous Cookie Dueñas RN 03:07 PM Fentanyl 50 mcg Intravenous Cookie Dueñas RN 03:13 PM Oxygen 2 L/min nasal cannula Cookie Dueñas RN 03:18 PM Lidocaine 2% 0.5 ml Subcutaneous Sudeep Bobo MD, FACC 03:22 PM Lidocaine 2% 15 ml Subcutaneous Sudeep Bobo MD, [facility] ASA Classification: CLASS II- Mild systemic disease (i.e. well-controlled diabetes, hypertension, asthma, cigarette smoking) Yasmeen Score Preprocedure Postprocedure Activity 2- Moves 4 extremities sustained head lift Activity 2- Moves 4 extremities sustained head lift Circulation 2- SBP +/= 20 points of pre-anesthetic level Circulation 2- SBP +/= 20 points of pre-anesthetic level Consciousness 2- Awake and alert oriented x 3 Consciousness 2- Awake and alert oriented x 3 O2 Saturation 2- Able to maintain O2 satruation of 92% on room air O2 Saturation 2- Able to maintain O2 satruation of 92% on room air Respiratory 2- Able to deep breathe and cough well Respiratory 2- Able to deep breathe and cough well Total Score 10 Total Score 10 Contrast Agent: Isovue Diagnostic Contrast: 52 ml Total Contrast: 52 ml Fluoro Dose: 117 mGy Procedure Log Time Note Enter By 02:26 PM Cookie Dueñas RN Position: Customer Engineer Time in: 14:26 2 02:26 PM Lola Brown RT (R) Position: Scrub Time in: 14:26 [email or web address] 02:26 PM Yann Oswald RT (R) Position: Monitor Time in: 14:26 [email or web address] 02:26 PM Patient charges- Angio tray pack, Navilyst 3mm J, Pulse Oximetry and ACIST tubing and transducer [email or web address] 02:46 PM Pt arrived to concrete laborer 1 at 14:46 [email or web address] 02:54 PM CathStat 02:58 PM Case Delayed No [email or web address] 02:58 PM Time: 14:58 Patient comfortable and pain free: Yes :58 PM Time: 14:58LOC: 5 = Fully awake and oriented or at pre-proc level :59 PM Physician arrived 14:59 :59 PM Heath and sirena completed :59 PM Sign in performed according to hospital policy. 03:00 PM ASA Class CLASS II- Mild systemic disease (i.e. well-controlled diabetes, hypertension, asthma, cigarette smoking) 03:00 PM Procedure start 15:00 03:01 PM Hair removed from procedure site in procedure lab using clippers. Right wrist prepped with Chloraprep by Lola Brown RT (R), safety strap applied then patient was draped. Skin intact. 03:02 PM Hair removed from procedure site in procedure lab using clippers. Right groin prepped with Chloraprep by Lola Brown RT (R), safety strap applied then patient was draped. Skin intact. 03:07 PM Time: 15:07 Versed 2 mg Intravenous Given by Cookie Dueñas RN 03:07 PM Time: 15:07 Fentanyl 50 mcg Intravenous Given by Cookie Dueñas RN [place] [id number] 03:08 PM Vitals capture started with the following parameters, Patient=Adult, Interval=5 min, Initial Ftnkybqu=650 mmHg, Deflation Rate=5 mmHg, Cuff placed on Right Arm 03:08 PM Recorded ECG: HR=46 Condition=Condition 1 03:09 PM HR=46 bpm, GLME=821/90 mmhg, SpO2=99.0 %, Resp=16 B/min, Yasmeen=10, Comment=SB 03:13 PM Pressure channel 2 zeroed. 03:13 PM Time: 15:13 Oxygen on at 2 L/min per nasal cannula by Cookie Dueñas RN 03:14 PM Time: 14:58LOC: 4 = Oriented but drowsy 03:14 PM Time: 14:58 Patient comfortable and pain free: Yes 03:14 PM HR=53 bpm, WVSD=061/81 mmhg, SpO2=94.0 %, Resp=12 B/min, Comment=SB 03:18 PM Time out performed according to hospital policy [email or web address] 03:18 PM Time: 15:18 0.5 ml Lidocaine 2% to right radial Subcutaneous Given by Sudeep Bobo MD, [facility] [email or web address] 03:19 PM HR=52 bpm, UJCA=814/81 mmhg, SpO2=95.0 %, Resp=12 B/min, Comment=SB 03:20 PM Unsuccessful access attempt # 1 into the right Radial artery. Manual pressure applied to achieve hemostasis.. [email or web address] 03:21 PM Unsuccessful access attempt # 2 into the right Radial artery unable to advance wire [email or web address] 03: PM moving to groin access [email or web address] 03: PM Time: 15:22 15 ml Lidocaine 2% to right groin Subcutaneous Given by Sudeep Bobo MD, [facility] [email or web address] 03:24 PM HR=51 bpm, OUCS=993/80 mmhg, SpO2=95.0 %, Resp=10 B/min, Comment=SB 03:24 PM Unsuccessful access attempt # 1 into the right Femoral artery. Manual pressure applied to achieve hemostasis.. 03: PM Access obtained by percutaneous puncture. 5Fr 10cm Terumo Castalia sheath placed in right Femoral artery. [id number] 03: PM 0.035 145cm Navilyst 3mmJ wire [id number] ilson 03: PM 5Fr FL 4 catheter inserted over the wire [facility] 03: PM LCA angiography performed in multiple views. 03: PM Recorded Pressure: Ao, HR=59, Condition=Condition 1 (Aorta) Ao 98/72/86 03:29 PM HR=57 bpm, YHWL=642/80 mmhg, SpO2=96.0 %, Resp=24 B/min, Comment=SB 03:29 PM Time: 15:14 Patient comfortable and pain free: Yes 03:29 PM Time: 15:14LOC: 4 = Oriented but drowsy [email or web address] 03:29 PM Catheter removed bw 03: PM 5Fr FR 4 catheter inserted over the wire [facility] 03:29 PM Lesion found in Proximal LAD. Pre Stenosis: 20 Pre SARAHI Flow: [email or web address] 03:29 PM Proximal Left Anterior Descending Coronary Artery with 20% stenosis. If graft is supplying this territory, 0 % stenosis. bw 03:29 PM Lesion found in Proximal Circumflex. Pre Stenosis: 20 Pre SARAHI Flow: [email or web address] 03:29 PM Circumflex, Obtuse Marginal, Left Posterior Descending, and Left Posterolateral Coronary Arteries with 20 % stenosis. If graft is supplying this area, 0 % stenosis [email or web address] 03:30 PM RCA angiography performed in multiple views. [email or web address] 03:30 PM Coronary Dominance: right [email or web address] 03:30 PM Lesion found in Proximal RCA. Pre Stenosis: 20 Pre SARAHI Flow: [email or web address] 03:30 PM Right Coronary, Right Posterior Descending Arteries with Right Posterolateral and Acute Marginal branches with 20 % stenosis. If graft is supplying this area, 0 % stenosis [email or web address] 03:31 PM Catheter removed [email or web address] 03:31 PM 5Fr Pigtail catheter inserted over the wire [facility] [email or web address] 03:31 PM Catheter selectively placed in left ventricle [email or web address] 03:31 PM Recorded Pressure: LV, HR=66, Condition=Condition 1 (Left Ventricle) LV 129/0/21 03:31 PM Bolus angiogram of left Ventricle complete: 10 ml/sec for a total of 20 mls [email or web address] 03:32 PM Recorded Pressure: LV, Ao, HR=63, Condition=Condition 1 (Left Ventricle) LV 135/19/39, (Aorta) Ao ?/?/? 03:33 PM Catheter removed [email or web address] 03:33 PM Bolus angiogram of right Femoral complete: 4 ml/sec for a total of 7 mls [email or web address] 03:33 PM Procedure completed at 15:33 [email or web address] 03:34 PM HR=60 bpm, VHYG=454/87 mmhg, SpO2=94.0 %, Resp=15 B/min, Comment=SB 03:35 PM Arterial sheath pulled, Mynx closure device used and was Successful [id number] S/N. [email or web address] 03:35 PM Isovue 370 - 200ml,1 Bottle(s) used. [email or web address] 03:36 PM Sign out completed: Radiation Dose 117.26 mGy Fluoro Time: 1.2 Isovue 370 - 200ml contrast 51.9 ml given by Sudeep Bobo MD, [facility]. Complications: NoneCardiac Rehab Consult needed: NoConfirmed administered medications: Yes [email or web address] 03:36 PM Post ECG Sinus Bradycardia [email or web address] 03:36 PM Post Blood Pressure 141/87 [email or web address] 03:37 PM Information taught Cardiac Cath and Mynx [email or web address] 03:37 PM Education needs Procedure, Plan of Care, and Disease Process [email or web address] 03:37 PM Learning barriers :Sedated [email or web address] 03:37 PM Education Methods Verbal [email or web address] 03:37 PM Education evaluation Needs further instruction [email or web address] 03:37 PM Delay to floor No [email or web address] 03:38 PM Family placed in consult room. [email or web address] 03:38 PM Fluoro Time: 1.2 [email or web address] 03:38 PM Isovue 370 - 200ml contrast 51.9 ml given by Sudeep Bobo MD, [facility]. [email or web address] 03:38 PM Radiation Dose 117.26 mGy [email or web address] 03:38 PM Site status No bleeding/hematoma - Rt Groin as reported by Lola Brown RT (R) at 15:38 [email or web address] 03:38 PM Opsite applied [email or web address] 03:38 PM 15:38 Post Pulses Bilateral DP \\T\\ PT 2+ [email or web address] 03:39 PM HR=56 bpm, FUZN=096/76 mmhg, SpO2=97.0 %, Resp=5 B/min 03:41 PM Vitals capture stopped. 03:44 PM Time: 15:29LOC: 5 = Fully awake and oriented or at pre-proc level [email or web address] 03:44 PM Time: 15:29 Patient comfortable and pain free: Yes [email or web address] 03:45 PM Report given to lilly EVANGELISTA Pt taken to 3B Room #22. 15:44 [email or web address] 03:46 PM Patient out of room: 15:46 [email or web address] Complications Complication None Hemodynamics Pressures Site Systolic/A Wave Diastolic/V Wave Mean AO 98 72 86 LV 129 0 21 LV 135 19 39 AO Post Procedure Information Blood Pressure: 141/87 mmHg Rhythm: Sinus Bradycardia Post procedural instructions were given Closure Device Time Device Success/Fail 11/05/2016 3:35:00 PM MynxGrip Successful Site Checks Time Location Status Staff Sheath In? Note 03:38 PM Rt Groin No bleeding/hematoma Lola Brown RT (R) Pulses Time Site Pre-Procedure Post-Procedure Note 11/05/2016 3:09:00 PM Bilateral DP \\T\\ PT 2+ 11/05/2016 3:09:00 PM Bilateral radial 2+ 3:38:00 PM Bilateral DP \\T\\ PT 2+ Updated by Yann Oswald RT (R) on 11/05/2016 3:46:44 PM Yann Darek, RT electronically signed on 11/05/2016 3:47:24 PM with status of Final
--- NOTE | 2016-11-05 16:55 | Internal Med Progress Note ---
Date of Encounter: 11/05/16 Time of Encounter: 08:40 - Assessment and plan (1) Symptomatic bradycardia Current Visit: Yes Status: Acute Assessment and plan: Patient denies chest pain, pressure, nausea, shortness of breath, diaphoresis, vomiting. Patient had C today, mild nonobstructive CAD was found. There is no intervention necessary. Cardiology has signed off. He will follow up in the office in 3-4 weeks. Continue telemetry Treat chest pain when necessary Continue medications. (2) Atypical chest pain Current Visit: Yes Status: Acute Assessment and plan: Patient denies chest pain today. Plan as above. (3) Corneal abrasion Current Visit: Yes Status: Acute Assessment and plan: Patient is using erythromycin ointment. He denies pain or vision changes. Qualifiers: Encounter type: initial encounter Laterality: left Qualified Code(s): S05.02XA - Injury of conjunctiva and corneal abrasion without foreign body, left eye, initial encounter (4) HTN (hypertension) Current Visit: Yes Status: Chronic Assessment and plan: Chronic. Continue home medications. Has been well controlled. Qualifiers: Hypertension type: essential hypertension Qualified Code(s): I10 - Essential (primary) hypertension (5) COPD (chronic obstructive pulmonary disease) Current Visit: Yes Status: Chronic Assessment and plan: No acute exacerbation. Continue home medications. Titrate oxygen as needed to maintain sats greater than 92% Nebulizer treatment as needed. Qualifiers: COPD type: unspecified COPD Qualified Code(s): J44.9 - Chronic obstructive pulmonary disease, unspecified (6) Atrial fibrillation Current Visit: Yes Status: Chronic Assessment and plan: Patient is unaware of having A. fib. He is on aspirin. . Continue telemetry Qualifiers: Atrial fibrillation type: paroxysmal Qualified Code(s): I48.0 - Paroxysmal atrial fibrillation (7) Aortic valve defect Current Visit: Yes Status: Chronic Assessment and plan: AR noted on echocardiogram. S1 and S2 heard, regular rate and rhythm. - Time Spent With Patient less than 15 minutes - Subjective Interval history: Patient was seen and assessed at about 8:40 AM. He denies any chest pain at all since arrival. He states that he feels good. He is aware of heart catheter. Patient did not go down to Residential Living Assistant until after 3 PM, patient's recovery vitals will not be done until about 8 PM. He will be spending the night and be discharged in the morning pending labs and condition. Patient reports approximate 2-3 month history of midsternal chest tightness with radiation to the left jaw, shortness of breath, and feeling clammy. Patient states that it happens a couple of times a week and states that it can last anywhere from 2-3 minutes to 15-20 minutes. He states initially the pain started 2001 after he had his MD, but was sporadic. He states that he has become more frequent over the last couple of months. He says that he had chest pain yesterday after he sat up from a lying position while he was in the emergency room. He was seen in the emergency room for corneal abrasion and was found to be bradycardic with his chest pain. He said that he noticed that the chest pain stopped when his pulse currently the high 50s and 60s. Today I did hear S1 and S2, rhythm was regular, there was no gallop, click, murmur noted. Patient denies chest pain at this time. Echocardiogram was negative, stress test showed area of ischemia. Cardiology consult was already in. Patient will be nothing by mouth after midnight tonight for [facility] in the morning. 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 - Constitutional Vitals: Temp Pulse Resp BP Pulse Ox 97.5 F L 57 16 123/77 98 11/05/16 16:07 11/05/16 16:07 11/05/16 16:07 11/05/16 16:07 11/05/16 16:07 General appearance: Present: cooperative, A&O X 3, pleasant, no acute distress, answers questions appropriately - Head Head exam: Present: normal inspection - Eye Eye exam: Present: normal appearance, conjuntiva pink - ENT ENT exam: Present: mucous membranes moist, normal exam, normal external ear exam - Neck Neck exam general surgery: Absent: lymphadenopathy, tenderness - Respiratory Respiratory exam: Present: CTAB. Absent: rales, respiratory distress, rhonchi, wheezes - Cardiovascular Cardiovascular exam: Present: RRR, +S1, +S2. Absent: diastolic murmur, systolic murmur - Expanded Cardiovascular Exam Peripheral pulses: 1+: Dorsalis Pedis (L) PM, Dorsalis Pedis (R) PM - GI/Abdominal GI/Abdominal exam: Present: normal bowel sounds, soft. Absent: distended, pulsatile mass, tenderness - Extremities Exam Extremities exam: Present: normal capillary refill, normal inspection, warm, radial pulses palpable and symetrical. Absent: pedal edema, tenderness - Neurological Exam Neurological exam: Present: alert, oriented X3, no focal deficits. Absent: facial droop, speech deficit - Skin Skin exam: Present: dry, normal color. Absent: rash, warm Internal Medicine: Result - Labs CBC & Chem 7: 11/03/16 08:47 11/03/16 08:47 - ABG Interpretation ABG results: PT/INR, D-dimer PT 11.3 Seconds (9.4-12.1) 11/03/16 08:47 Consult Discharge Plan - Plan Referrals: Papito Sun MD [Primary Care Provider] -
--- NOTE | 2016-11-05 17:19 | Invasive Diagnostic Lab ---
Name: Fausto Gilbert Date of Study: 11/05/2016 Date: 1955 Ht: 173.0 cm /68.1 in Medical Record#: [id number] Age: 61 Wt: 98. kg / 216.00 lb Account/Order#: [id number] Gender: Male BSA: 2.11 Order #: [id number] Fluoro Dose: 117 mGy BMI: 32.74 Procedure Physician: Sudeep Bobo MD, FACC Referring MD: Referring MD: Procedures Performed: LEFT HEART CATH Iliofemoral angiography Indications: Abnormal Test - Stress Impressions: Minimal atherosclerotic coronary artery disease. The left ventricle is normal and has normal contractility EF 60% Recommendations: Optimal medical therapy of patient's disease. Aggressive risk factor modification. History/Risk Factors: RI Thyroid Hypertension Dyslipidemia Procedure Access obtained in the right Femoral artery by percutaneous puncture Complications: None Contrast: Isovue 52ml Closure Device: MynxGrip Hemodynamics: Pressures Site Systolic/ A Wave Diastolic/ V Wave End Diastolic/ Mean HR AO 98 72 86 59 LV 129 0 21 66 LV 135 19 39 63 AO 0 LV Ventriculography Ejection Method: LV Gram Ejection Fraction: 60% Wall Motion: BARROS Anterobasal Normal Anterolateral Normal Apical: Normal Inferoapical Normal Inferobasal Normal Coronary Dominance: right Lesion Findings/Interventions * Left Main Coronary Artery The LMCA is angiographically free of disease. * Left Anterior Descending There is a 20% stenosis in the Proximal LAD. * Circumflex There is a 20% stenosis in the Proximal Circumflex. * Right Coronary Artery There is a 20% stenosis in the Proximal RCA. Right iliofemoral angiography shows no significant disease in the distal external iliac, common femoral, proximal SFA/profunda with appropriate sheath placement for closure. Updated by Yann POWELL (R) on 11/05/2016 3:43:36 PM Sudeep Bobo MD, FACC electronically signed on 11/05/2016 5:14:10 PM with status of Final
[2016-11-06] MEDS: *HR* OxyCODONE/APAP 7.5/325 TABLET PO PRN (05:20)
[2016-11-06 07:42] VITALS: BP 136/79
[2016-11-06 08:11] LABS: Basophils # 0.1 K/mcL (0.0-0.2); Basophils % 0.8 %; Eosinophils # 0.2 K/mcL (0.0-0.6); Eosinophils % 3.4 %; Hematocrit 46.7 % (37.5-50.1); Immature Granulocytes % 0.3 % (0-4); Lymphocytes # 1.9 K/mcL (0.6-4.6); Lymphocytes % 26.6 %; Mean Corpuscular HGB Conc 32.1 g/dL (31.6-35.5); Mean Corpuscular Hemoglobin 29.7 pg (28.0-33.3); Mean Corpuscular Volume 92.5 fL (83.0-100.0); Mean Platelet Volume 9.7 fL (9.4-12.4); Monocytes # 0.7 K/mcL (0.0-1.3); Monocytes % 9.1 %; Neutrophils # 4.3 K/mcL (1.6-8.9); Platelet Count 223 K/mcL (140-400); Red Blood Count 5.05 M/mcL (4.19-5.50); Red Cell Distribution Width 14.1 % (11.5-14.5); Segmented Neutrophils % 59.8 %
[2016-11-06 08:26] LABS: BUN/Creatinine Ratio 15 (6-26); Blood Urea Nitrogen 17 mg/dL (8-26); Calcium 9.1 mg/dL (8.6-10.8); Carbon Dioxide 26 mEq/L (19-29); Chloride 105 mEq/L (98-109); Glucose 94 mg/dL (70-99); Osmolality,Calculated 291 (280-300); Potassium 4.3 mEq/L (3.5-4.5); Sodium 140 mEq/L (136-145); eGFR For African Americans > 60 (> 60); eGFR For Non-African Americans > 60 (> 60)
[2016-11-06] MEDS: Furosemide 20 MG TABLET PO SCH (09:45)
[2016-11-06] MEDS: Aspirin 81 MG TAB.CHEW PO SCH (09:45)
[2016-11-06] MEDS: Gabapentin 300 MG CAPSULE PO SCH (09:45)
[2016-11-06] MEDS: Cholestyramine 4 GM POWD.PACK PO SCH (09:46)
[2016-11-06] MEDS: Erythromycin OPTH Oint LEFT EYE SCH (09:46)
[2016-11-06] MEDS: Loratadine 10 MG TABLET PO SCH (09:46)
[2016-11-06] MEDS: Isosorbide MONOnitrate (24 HR) 60 MG TAB.ER.24H PO SCH (09:46)
[2016-11-06] MEDS: (Fluticasone/Vilanterol [Breo Ellipta 200-25 Mcg Inh]) IH SCH (09:47)
[2016-11-06] MEDS: Fluticasone Propionate Nasal 50 MCG/SPRAY BOTTLE NS SCH (09:47)
--- NOTE | 2016-11-06 12:00 | Discharge Summary ---
Date of Encounter: 11/06/16 Time of Encounter: 09:15 - Discharge Diagnosis (1) Symptomatic bradycardia Priority: Primary Status: Acute Comments: Pulse has been in the 60s and 70s today. Pt states that he does feel better. He denies chest pain, pressure, nausea, SOB, diaphoresis or vomiting. [facility] yesterday , mild nonobstructive CAD was found and there was no intervention necessary. Pt will follow up in the office in 3-4 weeks. (2) Atypical chest pain Priority: Secondary Status: Acute Comments: Pt denies chest pain (3) Corneal abrasion Priority: Secondary Status: Acute Comments: Pt denies pain or vision changes. No drainage. Continue using EES ointment Qualifiers: Encounter type: initial encounter Laterality: left Qualified Code(s): S05.02XA - Injury of conjunctiva and corneal abrasion without foreign body, left eye, initial encounter (4) HTN (hypertension) Priority: Secondary Status: Chronic Comments: Chronic. Continue home medications. Qualifiers: Hypertension type: essential hypertension Qualified Code(s): I10 - Essential (primary) hypertension (5) COPD (chronic obstructive pulmonary disease) Priority: Secondary Status: Chronic Comments: No acute exacerbation. Continue home medications. Lungs are clear, pt in no distress. No wheezing, rales, ronchi. Qualifiers: COPD type: unspecified COPD Qualified Code(s): J44.9 - Chronic obstructive pulmonary disease, unspecified (6) Atrial fibrillation Priority: Secondary Status: Chronic Comments: Continue ASA and home medications. Qualifiers: Atrial fibrillation type: paroxysmal Qualified Code(s): I48.0 - Paroxysmal atrial fibrillation (7) Aortic valve defect Priority: Secondary Status: Chronic Comments: AR noted on echo. S1 and S2 heard, no murmur, gallops or clicks. - Discharge Medications Prescriptions: Erythromycin OPTH Oint 1 appl LEFT EYE Q4HWA #1 tube Home Medications: Albuterol Neb [Proventil Neb] 2.5 mg IH Q4HR PRN 11/03/16 [History] Albuterol Sulfate [Ventolin Hfa] 2 puff IH Q4H PRN 11/03/16 [History] Aspirin 81 mg PO DAILY 11/03/16 [History] Atorvastatin Calcium [Lipitor] 80 mg PO HS 11/03/16 [History] Cetirizine HCl [All Day Allergy] 10 mg PO DAILY 11/03/16 [History] Cholestyramine 4 gm PO BIDAC 11/03/16 [History] DULoxetine [Cymbalta] 30 mg PO DAILY 11/03/16 [History] Etodolac [Lodine] 400 mg PO BID PRN 11/03/16 [History] Fluticasone Propionate Nasal [Flonase] 2 spray NS DAILY 11/03/16 [History] Fluticasone/Vilanterol [Breo Ellipta 200-25 Mcg INH] 1 puff IH DAILY 11/03/16 [ History] Furosemide [Lasix] 20 mg PO DAILY 11/03/16 [History] Gabapentin [Neurontin] 600 mg PO TID 11/03/16 [History] Isosorbide MONOnitrate (24 HR) [Imdur] 60 mg PO DAILY 11/03/16 [History] Levothyroxine [Synthroid] 112 mcg PO 0630 11/03/16 [History] Lisinopril [Zestril] 5 mg PO DAILY 11/03/16 [History] Montelukast [Singulair] 10 mg PO DAILY 11/03/16 [History] Nitroglycerin [Nitrostat] 0.4 mg SL AD PRN 11/03/16 [History] Omeprazole [PriLOSEC] 20 mg PO DAILY 11/03/16 [History] Oxycodone HCl/Acetaminophen [Percocet 7.5-325 mg Tablet] 1 tab PO Q8-12H PRN 07/18 [History] Erythromycin OPTH Oint 1 appl LEFT EYE Q4HWA #1 tube 11/06/16 [Rx] Allergies/Adverse Reactions: Allergies ceftriaxone [From Rocephin] Allergy (Verified 11/03/16 08:01) Hives celecoxib [From Celebrex] Allergy (Verified 11/03/16 08:01) Hives methocarbamol [From Robaxin] Allergy (Verified 11/03/16 08:01) Hives morphine Allergy (Verified 11/03/16 08:01) Hives moxifloxacin [From Avelox] Allergy (Verified 11/03/16 08:01) Hives Penicillins Allergy (Verified 11/03/16 08:01) Swelling of Lip/Tongue/Throat Sulfa (Sulfonamide Antibiotics) Allergy (Verified 11/03/16 08:01) Hives tramadol Adverse Reaction (Verified 11/03/16 08:01) Vomiting Procedures/tests Complete & Pending: Procedures Performed prior 72 hours Category Date Time Status CL Cardiac Catheterization [CL] Routine [employer] 11/05/16 10:16 Completed NM jignesh perf SPECT multi [NM] Routine Exams 11/03/16 12:22 Taken EV echocardiogram Routine Y 11/03/16 12:22 Completed SP pharm nuclear stress Routine Y 11/03/16 12:22 Completed Date of admission: 11/03/16 10:52 Primary care physician: Papito Sun MD Consults: 11/04/16 11:57 Consult to Cardiology [CONS] Routine Comment: Consulting Provider: Cardiology Bertha Reason for Consult: symptomatic bradycardia. Chest pain, clammy, sob, sub- sternal chest pain with radiation to jaw, pt states that symptoms resolved when pulse was in 60s in ER yesterday. History of these symptoms for several months, occur 2-3x/week. Time Notified: 11:59 Call Completed: Yes Discharging clinician: Rosalia Rosas Anticipated date of discharge: 11/06/16 - Patient Status Disposition: Home, Self-Care Condition: Good Functional capacity at discharge: independent ambulation Overall status at discharge: patient is back to baseline - Discharge Instructions Instructions: Left Heart Catheterization (DC) Follow Up With: Papito Sun MD [Primary Care Provider] - 11/11/16 9:45 am Additional Instructions: Follow up with your primary care provider in the next 7-10 days for a recheck. Follow up with cardiology in the office in 2-3 weeks. They will call you to make an appointment. Resume taking your home medications Apply thin ribbon of EES ointment in the bottom lid of your left eye every 4 hours for the next 4 days Return to the ER if any of your symptoms return or worsen or for any other problems or concerns. - Diet and Activity Activity: resume usual activities as tolerated Diet: advance to your usual diet Hospital course: Mr. Gilbert is a 61 year old male with past medical history of questionable valve disorder, hyperlipidemia, hypertension, congestive heart failure, hypothyroidism, chronic low back pain, and A. fib. He presented to the emergency department on November 03 with complaints of foreign body in his left eye, while he was being worked up he developed a very short one-time episode of chest pain, suggestive in sharp, /, radiated to his back and resolve spontaneously. He did not have nausea, vomiting, diaphoresis, dizziness. He had one episode of bradycardia that was captured on EKG with a rate of 49, normal sinus rhythm. Patient did not have chest pain the remainder of the time he was here. He reports approximately 2-3 month history of midsternal chest tightness radiation to left jaw, shortness of breath, feeling clammy with this. Patient states it happens a couple times a week and states it can last anywhere from 2-3 minutes up to 15-20 minutes. He states initially the pain started in 2001 after he had his RI, but was sporadic and has become increasingly frequent over the last couple of months. While he was in the emergency room and have the chest pain, he was bradycardic and he said he noticed that when the chest pain stopped his pulse was in the 50s and 60s. It was noted in his admission note that S2 was absent. I did hear S1 and S2 and the rate and rhythm was regular. There is no gallop click murmurs noted. Patient's troponins were negative. Echocardiogram was technically suboptimal due to poor echocardiographic windows. LVEF is 50% with normal LV chamber size and wall thickness. Overall LVEF appeared to be low normal. There is normal diastolic dysfunction and normal RV structure and function , mild AR. Limited echo remained unchanged. Stress test showed gated EF of 55% with a medium sized , moderate intensity, reversible perfusion defect involving the basal to mid inferior and adjacent inferoseptal and inferolateral segments. Patient had an LHC on November 05, minimal atherosclerotic coronary artery disease and EF of 60%, no intervention was needed. Aggressive risk factor modification and optimal medical therapy recommended. He will follow-up in the cardiology office in 2-3 weeks. Patient was initially being treated for a corneal abrasion in the emergency department. He has been using erythromycin ointment to his left eye. He denies pain or vision changes in either eye, there is no drainage or redness. He will continue the erythromycin ointment on discharge. Patient's pulse is now in the 60s, patient states that he feels significantly better, he says that he is ready to go home. His vitals have been stable. Labs are within normal limits. Physical exam is unremarkable. He denies any complaints or pain. Patient is appropriate and stable for discharge. - Time Spent with Patient Total time spent providing and/or coordinating discharge services: Less than 30 minutes - Constitutional Vitals: Temp Pulse Resp BP Pulse Ox 97.5 F L 60 18 136/79 95 11/06/16 07:38 11/06/16 07:38 11/06/16 07:38 11/06/16 07:38 11/06/16 07:38 General appearance: Present: cooperative, A&O X 3, pleasant, no acute distress, answers questions appropriately - Head Head exam: Present: normal inspection - Eye Eye exam: Present: normal appearance, conjuntiva pink - ENT ENT exam: Present: mucous membranes moist, normal external ear exam - Respiratory Respiratory exam: Present: CTAB. Absent: rales, respiratory distress, rhonchi, wheezes - Cardiovascular Cardiovascular exam: Present: RRR, +S1, +S2. Absent: diastolic murmur, systolic murmur - Expanded Cardiovascular Exam Peripheral pulses: 1+: Dorsalis Pedis (L) PM, Dorsalis Pedis (R) PM - GI/Abdominal GI/Abdominal exam: Present: normal bowel sounds, soft. Absent: distended, hepatomegaly, tenderness - Extremities Exam Extremities exam: Present: normal capillary refill, normal inspection, warm, radial pulses palpable and symetrical. Absent: pedal edema, tenderness - Neurological Exam Neurological exam: Present: alert, oriented X3, no focal deficits. Absent: facial droop, speech deficit - Skin Skin exam: Present: dry, normal color, warm. Absent: rash
== END 2016-11-06 12:30 | disposition home or self-care (01) ==
LOC: 3BNU 07:48 → EMEROO 07:48 → 3BNU 11:10
PROVIDERS: ADMIT Nurse Practitioner Family; ATTEND Nurse Practitioner Family

== ENCOUNTER 2017-11-12 14:52 | Observation (INO) ==
[2017-11-12] MEDS ORDERED: Aspirin 81 MG TAB.CHEW PO ONE (15:18)
--- NOTE | 2017-11-12 15:24 | Emergency Department Note ---
Disposition Clinical Impression: Unstable angina, Acute kidney injury Chest pain Qualifiers: Chest pain type: unspecified Qualified Code(s): R07.9 - Chest pain, unspecified Disposition: Still a Patient Condition: Fair Time of Disposition: 16:27 Chest Pain HPI - General Chief Complaint: ED Chest Pain Stated Complaint: "CP,sob,retaining water sent by " Time Seen by Provider: 11/12/17 15:13 Vital Signs Reviewed: Yes Nursing Notes Reviewed: Yes - History of Present Illness HPI Narrative: 60-year-old male presents from home for evaluation of chest pain, dyspnea, weight gain. He notes he has gained 10-12 pounds overnight. Additionally, 2.5 hours prior to arrival, patient was outside filling a hole using a shovel and experienced left-sided sharp stabbing chest pain which radiated around his left side to his back. This is associated with dyspnea. This persisted for 2 hours when became increasingly more intense than underlying dullness. It has since gradually improved. He was notably short of breath walking from the waiting room to his bed. Cardiac risk factors: VT 18 years ago with no stent placement. Followed by [facility]. Hypertension, hyperlipidemia, history of valvular disease, history of smoking with COPD; Apgars no supplemental oxygen however does use inhalers at home. ROS: Positive: As above Negative: Fever, chills, nausea, vomiting, palpitations, unusual back pain, change in cough, abdominal pain, numbness/tingling/weakness, lightheadedness. Severity scale (1-10): 5 - Related Data Home Medications Medication Instructions Recorded Confirmed Albuterol Neb [Proventil Neb] 2.5 mg IH Q4HR PRN 11/03/16 11/12/17 Albuterol Sulfate [Ventolin Hfa] 2 puff IH Q4H PRN 11/03/16 11/12/17 Aspirin 81 mg PO DAILY 11/03/16 11/12/17 Atorvastatin Calcium [Lipitor] 80 mg PO HS 11/03/16 11/12/17 Cetirizine HCl [All Day Allergy] 10 mg PO DAILY 11/03/16 11/12/17 DULoxetine [Cymbalta] 30 mg PO DAILY 11/03/16 11/12/17 Etodolac [Lodine] 400 mg PO BID PRN 11/03/16 11/12/17 Fluticasone Propionate Nasal 2 spray NS DAILY 11/03/16 11/12/17 [Flonase] Fluticasone/Vilanterol [Breo 1 puff IH DAILY 11/03/16 11/12/17 Ellipta 200-25 Mcg INH] Gabapentin [Neurontin] 600 mg PO TID 11/03/16 11/12/17 Isosorbide MONOnitrate (24 HR) 60 mg PO DAILY 11/03/16 11/12/17 [Imdur] Levothyroxine [Synthroid] 112 mcg PO 0630 11/03/16 11/12/17 Lisinopril [Zestril] 5 mg PO DAILY 11/03/16 11/12/17 Montelukast [Singulair] 10 mg PO DAILY 11/03/16 11/12/17 Nitroglycerin [Nitrostat] 0.4 mg SL AD PRN 11/03/16 11/12/17 Omeprazole [PriLOSEC] 20 mg PO DAILY 11/03/16 11/12/17 Oxycodone HCl/Acetaminophen 1 tab PO Q8-12H PRN 11/03/16 11/12/17 [Percocet 7.5-325 mg Tablet] Furosemide [Lasix] 40 mg PO BID 11/12/17 11/12/17 Allergies Allergy/AdvReac Type Severity Reaction Status Date / Time ceftriaxone [From Rocephin] Allergy Hives Verified 11/03/16 08:01 celecoxib [From Celebrex] Allergy Hives Verified 11/03/16 08:01 methocarbamol [From Robaxin] Allergy Hives Verified 11/03/16 08:01 morphine Allergy Hives Verified 11/03/16 08:01 moxifloxacin [From Avelox] Allergy Hives Verified 11/03/16 08:01 Penicillins Allergy Swelling Verified 11/03/16 08:01 of Lip/Tongue/Throat Sulfa (Sulfonamide Allergy Hives Verified 11/03/16 08:01 Antibiotics) tramadol AdvReac Vomiting Verified 11/03/16 08:01 All systems ED: reviewed and negative except as stated. Review of Systems: As Per HPI Chest Pain PMH - Past Medical History Medical history: Reports: hyperlipidemia, hypertension, myocardial infarction, thyroid disease, other Surgical history: Reports: cholecystectomy, hip replacement, other Psychiatric history: Reports: anxiety - Social History Smoking Status: Former smoker Alcohol use: Reports: none Drug use: Reports: none Physical Exam Vital Signs Reviewed General: Patient is alert, oriented, and in no acute distress. Head: atraumatic, normocephalic Eye: normal appearance, no scleral icterus, no conjunctival injection ENT: mucous membranes moist, normal external ear exam Neck: normal inspection, trachea midline, full ROM Chest: normal inspection, symmetric chest rise Respiratory: Good respiratory effort. Bilateral breath sounds are clear without wheezing, rhonchi. Very faint bibasilar crackles. Cardiovascular: Regular rate and rhythm. No clicks, rubs, gallops, or murmors. Normal heart sounds. Bilateral radial pulses 2/4 equal. No pedal edema. Abdomen: Bowel sounds present normoactive x-4 quadrants. Abdomen is soft, nondistended, and nontender. No guarding or rebound. No organomegaly noted. Musculoskeletal: Spontaneously moving all extremities. Skin: warm, dry, intact. Neuro: Alert and oriented x4. Sensation light touch intact. Psych: Patient's affect is appropriate for situation. Course Course Narrative: Patient's chart shows an allergy to aspirin. He does use aspirin at home. He has not taken any today. Provided 324 mg aspirin chewed. Serum hematology unremarkable. Serum chemistry concerning for ACACIA with elevated cratening of 1.52. Patient is on Lasix 40mg PO BID. Troponin and BNP within normal limits. CXR unremarkable. I discussed the above with the patient and his . They are agreeable to admission for continued evaluation. I discussed the above with the admitting hospitalist, Dr. Blanco, who agrees to see the patient for CP r/o ACS. She requests I speak with [facility] given the patient's T-wave inversion new in V3. I discussed the patient with [facility], Dr. Luis. I discussed the patient's PMH and clinical presentation as well as treatment thus far. He recommends heparanization at this time. Consult placed & ACS dose heparin ordered. EKG dated 11/12/17 at 15:00 and interpreted as sinus rhythm with rate of 87. OK 161, QRS 104, QTC 419. Left axis. Incomplete left bundle branch block. T- wave inversion in lead III and V3. Compared to previous EKG dated 12/08/2016 showing T-wave inversion in lead III is not new however T-wave inversion in V3 is new. Chest X-Ray 11/12/17 14:58 IMPRESSION: No acute process. D/ / Winifred Calero MD / Winifred Calero MD Interpreting Provider: Winifred Calero MD Vital Signs Temperature 97.6 F 11/12/17 14:56 Pulse Rate 94 11/12/17 14:56 Respiratory Rate 22 11/12/17 14:56 Blood Pressure 135/85 11/12/17 14:56 O2 Sat by Pulse Oximetry 95 11/12/17 14:56 Temperature 97.6 F 11/12/17 14:56 Pulse Rate 76 11/12/17 16:23 Respiratory Rate 16 11/12/17 16:23 Blood Pressure 141/96 11/12/17 16:23 O2 Sat by Pulse Oximetry 95 11/12/17 16:23 Oxygen Delivery Oxygen Delivery Room Air Chest Pain - Lab Data Result diagrams: 11/12/17 15:25 11/12/17 15:25 Lab Results 11/12/17 11/12/17 11/12/17 Range/Units 15:25 15:25 15:25 WBC 9.0 (4.3-11.1) K/mcL RBC 4.72 (4.19-5.50) M/mcL Hgb 14.9 (12.9-16.9) g/dL Hct 43.9 (37.5-50.1) % MCV 93.0 (83.0-100.0) fL MCH 31.6 (28.0-33.3) pg MCHC 33.9 (31.6-35.5) g/dL RDW 14.2 (11.5-14.5) % Plt Count 235 (140-400) K/mcL MPV 9.9 (9.4-12.4) fL Immature Gran % 0.4 (0-4) % Seg Neutrophils % 56.5 % Lymphocytes % 26.3 % Monocytes % 13.6 % Eosinophils % 2.4 % Basophils % 0.8 % Neutrophils # 5.1 (1.6-8.9) K/mcL Lymphocytes # 2.4 (0.6-4.6) K/mcL Monocytes # 1.2 (0.0-1.3) K/mcL Eosinophils # 0.2 (0.0-0.6) K/mcL Basophils # 0.1 (0.0-0.2) K/mcL PT (9.4-12.1) Seconds INR APTT (26.0-36.0) Seconds Sodium 138 (136-145) mEq/L Potassium 3.9 (3.5-5.1) mEq/L Chloride 103 (98-107) mEq/L Carbon Dioxide 27 (23-29) mEq/L BUN 23 (8-23) mg/dL Creatinine 1.56 H (0.70-1.30) mg/dL Est GFR ( Amer) 55 L (> 60) Est GFR (Non-Af Amer) 45 L (> 60) BUN/Creatinine Ratio 15 (6-26) Glucose 92 (70-105) mg/dL Calculated Osmolality 289 (280-300) Calcium 9.5 (8.6-10.3) mg/dL Troponin I < 0.03 (< 0.04) ng/mL B-Natriuretic Peptide 32 (Less than 100) pg/mL 11/12/17 Range/Units 15:26 WBC (4.3-11.1) K/mcL RBC (4.19-5.50) M/mcL Hgb (12.9-16.9) g/dL Hct (37.5-50.1) % MCV (83.0-100.0) fL MCH (28.0-33.3) pg MCHC (31.6-35.5) g/dL RDW (11.5-14.5) % Plt Count (140-400) K/mcL MPV (9.4-12.4) fL Immature Gran % (0-4) % Seg Neutrophils % % Lymphocytes % % Monocytes % % Eosinophils % % Basophils % % Neutrophils # (1.6-8.9) K/mcL Lymphocytes # (0.6-4.6) K/mcL Monocytes # (0.0-1.3) K/mcL Eosinophils # (0.0-0.6) K/mcL Basophils # (0.0-0.2) K/mcL PT 11.4 (9.4-12.1) Seconds INR 1.0 APTT 33.9 (26.0-36.0) Seconds Sodium (136-145) mEq/L Potassium (3.5-5.1) mEq/L Chloride (98-107) mEq/L Carbon Dioxide (23-29) mEq/L BUN (8-23) mg/dL Creatinine (0.70-1.30) mg/dL Est GFR ( Amer) (> 60) Est GFR (Non-Af Amer) (> 60) BUN/Creatinine Ratio (6-26) Glucose (70-105) mg/dL Calculated Osmolality (280-300) Calcium (8.6-10.3) mg/dL Troponin I (< 0.04) ng/mL B-Natriuretic Peptide (Less than 100) pg/mL Heart Score - Score History: Moderately Suspicious EKG: Non Specific repolarisation Disturbance Age: 45-65 Risk Factors: Equal/Greater than 3 risk factor or history of atherosclerotic disease Troponin: Less than normal limit HEART Score Total: 5
[2017-11-12 15:37] LABS: Basophils # 0.1 K/mcL (0.0-0.2); Basophils % 0.8 %; Eosinophils # 0.2 K/mcL (0.0-0.6); Eosinophils % 2.4 %; Hematocrit 43.9 % (37.5-50.1); Hemoglobin 14.9 g/dL (12.9-16.9); Immature Granulocytes % 0.4 % (0-4); Lymphocytes # 2.4 K/mcL (0.6-4.6); Lymphocytes % 26.3 %; Mean Corpuscular HGB Conc 33.9 g/dL (31.6-35.5); Mean Corpuscular Hemoglobin 31.6 pg (28.0-33.3); Mean Platelet Volume 9.9 fL (9.4-12.4); Monocytes # 1.2 K/mcL (0.0-1.3); Monocytes % 13.6 %; Neutrophils # 5.1 K/mcL (1.6-8.9); Platelet Count 235 K/mcL (140-400); Red Blood Count 4.72 M/mcL (4.19-5.50); Red Cell Distribution Width 14.2 % (11.5-14.5); Segmented Neutrophils % 56.5 %
[2017-11-12 15:42] LABS: Prothrombin Time 11.4 Seconds (9.4-12.1)
[2017-11-12 15:44] LABS: Activated Partial Thrombo Time 33.9 Seconds (26.0-36.0)
[2017-11-12 15:58] LABS: BUN/Creatinine Ratio 15 (6-26); Blood Urea Nitrogen 23 mg/dL (8-23); Calcium 9.5 mg/dL (8.6-10.3); Carbon Dioxide 27 mEq/L (23-29); Chloride 103 mEq/L (98-107); Glucose 92 mg/dL (70-105); Osmolality,Calculated 289 (280-300); Potassium 3.9 mEq/L (3.5-5.1); Sodium 138 mEq/L (136-145); Troponin I < 0.03 ng/mL (< 0.04); eGFR For African Americans 55 (> 60); eGFR For Non-African Americans 45 (> 60)
--- NOTE | 2017-11-12 16:26 | Emergency Department Note ---
Disposition Clinical Impression: Unstable angina Disposition: Admitted As Inpatient Referrals: NONE,PCP [Primary Care Provider] - Forms: ED Satisfaction Letter General Adult HPI - General Chief complaint: ED Chest Pain Stated complaint: "CP,sob,retaining water sent by " Time Seen by Provider: 11/12/17 15:13 - History of Present Illness Pain Scale: 2 - Related Data Home Medications Medication Instructions Recorded Confirmed Albuterol Neb [Proventil Neb] 2.5 mg IH Q4HR PRN 11/03/16 11/12/17 Albuterol Sulfate [Ventolin Hfa] 2 puff IH Q4H PRN 11/03/16 11/12/17 Aspirin 81 mg PO DAILY 11/03/16 11/12/17 Atorvastatin Calcium [Lipitor] 80 mg PO HS 11/03/16 11/12/17 Cetirizine HCl [All Day Allergy] 10 mg PO DAILY 11/03/16 11/12/17 DULoxetine [Cymbalta] 30 mg PO DAILY 11/03/16 11/12/17 Etodolac [Lodine] 400 mg PO BID PRN 11/03/16 11/12/17 Fluticasone Propionate Nasal 2 spray NS DAILY 11/03/16 11/12/17 [Flonase] Fluticasone/Vilanterol [Breo 1 puff IH DAILY 11/03/16 11/12/17 Ellipta 200-25 Mcg INH] Gabapentin [Neurontin] 600 mg PO TID 11/03/16 11/12/17 Isosorbide MONOnitrate (24 HR) 60 mg PO DAILY 11/03/16 11/12/17 [Imdur] Levothyroxine [Synthroid] 112 mcg PO 0630 11/03/16 11/12/17 Lisinopril [Zestril] 5 mg PO DAILY 11/03/16 11/12/17 Montelukast [Singulair] 10 mg PO DAILY 11/03/16 11/12/17 Nitroglycerin [Nitrostat] 0.4 mg SL AD PRN 11/03/16 11/12/17 Omeprazole [PriLOSEC] 20 mg PO DAILY 11/03/16 11/12/17 Oxycodone HCl/Acetaminophen 1 tab PO Q8-12H PRN 11/03/16 11/12/17 [Percocet 7.5-325 mg Tablet] Furosemide [Lasix] 40 mg PO BID 11/12/17 11/12/17 Allergies Allergy/AdvReac Type Severity Reaction Status Date / Time ceftriaxone [From Rocephin] Allergy Hives Verified 11/03/16 08:01 celecoxib [From Celebrex] Allergy Hives Verified 11/03/16 08:01 methocarbamol [From Robaxin] Allergy Hives Verified 11/03/16 08:01 morphine Allergy Hives Verified 11/03/16 08:01 moxifloxacin [From Avelox] Allergy Hives Verified 11/03/16 08:01 Penicillins Allergy Swelling Verified 11/03/16 08:01 of Lip/Tongue/Throat Sulfa (Sulfonamide Allergy Hives Verified 11/03/16 08:01 Antibiotics) tramadol AdvReac Vomiting Verified 11/03/16 08:01 Past Medical History - Past Medical History Medical history: Reports: hyperlipidemia, hypertension, myocardial infarction, thyroid disease, other Surgical history: Reports: cholecystectomy, hip replacement, other Psychiatric history: Reports: anxiety - Social History Smoking Status: Former smoker Smokeless Tobacco Status: No Alcohol use: Reports: none Drug use: Reports: none Course Vital Signs Temperature 97.6 F 11/12/17 14:56 Pulse Rate 94 11/12/17 14:56 Respiratory Rate 22 11/12/17 14:56 Blood Pressure 135/85 11/12/17 14:56 O2 Sat by Pulse Oximetry 95 11/12/17 14:56 Temperature 97.6 F 11/12/17 14:56 Pulse Rate 76 11/12/17 16:23 Respiratory Rate 16 11/12/17 16:23 Blood Pressure 141/96 11/12/17 16:23 O2 Sat by Pulse Oximetry 95 11/12/17 16:23 Oxygen Delivery Oxygen Delivery Room Air Medical Decision Making - Lab Data Result diagrams: 11/12/17 15:25 11/12/17 15:25 Lab Results 11/12/17 11/12/17 11/12/17 Range/Units 15:25 15:25 15:25 WBC 9.0 (4.3-11.1) K/mcL RBC 4.72 (4.19-5.50) M/mcL Hgb 14.9 (12.9-16.9) g/dL Hct 43.9 (37.5-50.1) % MCV 93.0 (83.0-100.0) fL MCH 31.6 (28.0-33.3) pg MCHC 33.9 (31.6-35.5) g/dL RDW 14.2 (11.5-14.5) % Plt Count 235 (140-400) K/mcL MPV 9.9 (9.4-12.4) fL Immature Gran % 0.4 (0-4) % Seg Neutrophils % 56.5 % Lymphocytes % 26.3 % Monocytes % 13.6 % Eosinophils % 2.4 % Basophils % 0.8 % Neutrophils # 5.1 (1.6-8.9) K/mcL Lymphocytes # 2.4 (0.6-4.6) K/mcL Monocytes # 1.2 (0.0-1.3) K/mcL Eosinophils # 0.2 (0.0-0.6) K/mcL Basophils # 0.1 (0.0-0.2) K/mcL PT (9.4-12.1) Seconds INR APTT (26.0-36.0) Seconds Sodium 138 (136-145) mEq/L Potassium 3.9 (3.5-5.1) mEq/L Chloride 103 (98-107) mEq/L Carbon Dioxide 27 (23-29) mEq/L BUN 23 (8-23) mg/dL Creatinine 1.56 H (0.70-1.30) mg/dL Est GFR ( Amer) 55 L (> 60) Est GFR (Non-Af Amer) 45 L (> 60) BUN/Creatinine Ratio 15 (6-26) Glucose 92 (70-105) mg/dL Calculated Osmolality 289 (280-300) Calcium 9.5 (8.6-10.3) mg/dL Troponin I < 0.03 (< 0.04) ng/mL B-Natriuretic Peptide 32 (Less than 100) pg/mL 11/12/17 Range/Units 15:26 WBC (4.3-11.1) K/mcL RBC (4.19-5.50) M/mcL Hgb (12.9-16.9) g/dL Hct (37.5-50.1) % MCV (83.0-100.0) fL MCH (28.0-33.3) pg MCHC (31.6-35.5) g/dL RDW (11.5-14.5) % Plt Count (140-400) K/mcL MPV (9.4-12.4) fL Immature Gran % (0-4) % Seg Neutrophils % % Lymphocytes % % Monocytes % % Eosinophils % % Basophils % % Neutrophils # (1.6-8.9) K/mcL Lymphocytes # (0.6-4.6) K/mcL Monocytes # (0.0-1.3) K/mcL Eosinophils # (0.0-0.6) K/mcL Basophils # (0.0-0.2) K/mcL PT 11.4 (9.4-12.1) Seconds INR 1.0 APTT 33.9 (26.0-36.0) Seconds Sodium (136-145) mEq/L Potassium (3.5-5.1) mEq/L Chloride (98-107) mEq/L Carbon Dioxide (23-29) mEq/L BUN (8-23) mg/dL Creatinine (0.70-1.30) mg/dL Est GFR ( Amer) (> 60) Est GFR (Non-Af Amer) (> 60) BUN/Creatinine Ratio (6-26) Glucose (70-105) mg/dL Calculated Osmolality (280-300) Calcium (8.6-10.3) mg/dL Troponin I (< 0.04) ng/mL B-Natriuretic Peptide (Less than 100) pg/mL Attestation Statement - Attestation Attestation: I examined this patient and my medical decision-making was reviewed with the Resident Physician. I agree with the documented findings, disposition and treatment plan as described except to the extent set forth below. 62-year-old male with chest pain. Chest pain on exertion today. Also been gaining weight recently over the past few days. He was concerned he might be developing congestive heart failure. Onset unstable angina as well. Patient will be admitted for ACS evaluation and workup. Initial troponin negative. Chest x-ray negative. Chest pain is essentially gone at this time. He did receive aspirin.
[2017-11-12] MEDS ORDERED: *HR* Heparin 5,000 UNIT/ML VIAL IVP PRN ×2 (16:47)
[2017-11-12] MEDS ORDERED: *HR* Heparin 5,000 UNIT/ML VIAL IVP ONE (16:47)
[2017-11-12] MEDS ORDERED: Heparin 25,000 UNIT/500 ML D5W 25,000 UNIT/500 ML BAG IVC SCH (17:00)
--- NOTE | 2017-11-12 18:57 | Internal Med History&Physical ---
Date of Encounter: 11/12/17 Time of Encounter: 05:00 Internal Medicine - H&P: HPI Chief complaint: cp History of present illness: Mr. Gilbert is a 62 year old male medical history of Hypertension, hyperlipidemia, history of valvular disease, history of smoking with COPD who presents from home for evaluation of chest pain associated with dyspnea. He is complaining of left-sided sharp stabbing chest pain which radiated around his left side to his back that occurred when he was working around his yard. He has [place] 18 years ago with no stent placement. The patient was evaluated by the ER staff and primary workup revealed sinus rhythm with rate of 87. PA 161, QRS 104, QTC 419. Left axis. Incomplete left bundle branch block. T-wave inversion in lead III and V3. Compared to previous EKG dated 12/08/2016 showing T-wave inversion in lead III is not new however T-wave inversion in V3 is new. normal troponin, he was admitted for further evaluation and management. Past Med Surg Social Fam HX - Past Medical History Medical history: hyperlipidemia, hypertension, myocardial infarction, thyroid disease, other Additional medical history: valve disfunction Psychiatric history: anxiety - Past Surgical History Surgical History: cholecystectomy, hip replacement, other Additional surgical history: right rotator cuff surgery, hernia surgery - Social History Smoking Status: Former smoker Smokeless Tobacco Status: No Alcohol use: none Drug use: none - Family History Father Living Status: Age at : 72 Cause of : [place] Hx Family Cardiac Disorders: Yes Brother Hx Family Endocrine Disorder: Yes (DM) Internal Medicine - H&P: Meds Albuterol Neb [Proventil Neb] 2.5 mg IH Q4HR PRN 11/03/16 [History] Albuterol Sulfate [Ventolin Hfa] 2 puff IH Q4H PRN 11/03/16 [History] Aspirin 81 mg PO DAILY 11/03/16 [History] Atorvastatin Calcium [Lipitor] 80 mg PO HS 11/03/16 [History] Cetirizine HCl [All Day Allergy] 10 mg PO DAILY 11/03/16 [History] DULoxetine [Cymbalta] 30 mg PO DAILY 11/03/16 [History] Etodolac [Lodine] 400 mg PO BID PRN 11/03/16 [History] Fluticasone Propionate Nasal [Flonase] 2 spray NS DAILY 11/03/16 [History] Fluticasone/Vilanterol [Breo Ellipta 200-25 Mcg INH] 1 puff IH DAILY 11/03/16 [ History] Gabapentin [Neurontin] 600 mg PO TID 11/03/16 [History] Isosorbide MONOnitrate (24 HR) [Imdur] 60 mg PO DAILY 11/03/16 [History] Levothyroxine [Synthroid] 112 mcg PO 0630 11/03/16 [History] Lisinopril [Zestril] 5 mg PO DAILY 11/03/16 [History] Montelukast [Singulair] 10 mg PO DAILY 11/03/16 [History] Nitroglycerin [Nitrostat] 0.4 mg SL AD PRN 11/03/16 [History] Omeprazole [PriLOSEC] 20 mg PO DAILY 11/03/16 [History] Oxycodone HCl/Acetaminophen [Percocet 7.5-325 mg Tablet] 1 tab PO Q8-12H PRN 07/18 [History] Furosemide [Lasix] 40 mg PO BID 11/12/17 [History] 3 Allergy/AdvReac Type Severity Reaction Status Date / Time ceftriaxone [From Rocephin] Allergy Hives Verified 11/03/16 08:01 celecoxib [From Celebrex] Allergy Hives Verified 11/03/16 08:01 methocarbamol [From Robaxin] Allergy Hives Verified 11/03/16 08:01 morphine Allergy Hives Verified 11/03/16 08:01 moxifloxacin [From Avelox] Allergy Hives Verified 11/03/16 08:01 Penicillins Allergy Swelling Verified 11/03/16 08:01 of Lip/Tongue/Throat Sulfa (Sulfonamide Allergy Hives Verified 11/03/16 08:01 Antibiotics) tramadol AdvReac Vomiting Verified 11/03/16 08:01 All Systems PM: A 10-system review of systems was performed and is negative for pertinent findings except as documented above in the HPI. - Constitutional Constitutional: no chills, no fever(s), no night sweats - Cardiovascular Cardiovascular ROS IM: chest pain, dyspnea, dyspnea on exertion, no diaphoresis , no lightheadedness, no palpitations, no syncope - Respiratory Respiratory: no cough, no dyspnea, no wheezing, no excessive phlegm production - Gastrointestinal Gastrointestinal: no abdominal pain, no diarrhea, no hematemesis, no hematochezia, no melena, no nausea, no vomiting - Neurological Neurological ROS: no confusion, no convulsions, no focal weakness, no numbness, no tingling, no tremor(s) - Constitutional Vitals: Temp Pulse Resp BP Pulse Ox 98.1 F 74 16 134/79 97 11/12/17 18:18 11/12/17 18:18 11/12/17 18:18 11/12/17 18:18 11/12/17 18:18 General appearance: Present: A&O X 3 - Head Head exam: Present: atraumatic, normocephalic - Respiratory Respiratory exam: Present: CTAB. Absent: accessory muscle use, rales, rhonchi, wheezes - Cardiovascular Cardiovascular exam: Present: RRR, +S1, +S2. Absent: diastolic murmur, gallop, rubs, systolic murmur - GI/Abdominal GI/Abdominal exam: Present: normal bowel sounds, soft, no peritoneal signs. Absent: distended, tenderness - Extremities Exam Extremities exam: Present: warm, radial pulses palpable and symmetrical. Absent : calf tenderness, cyanotic, pedal edema Internal Med - H&P Results - Labs CBC & Chem 7: 11/13/17 06:19 11/13/17 06:19 - Assessment and plan (1) Atypical chest pain Current Visit: No Status: Acute Assessment and plan: - Chest pain DD *CAD *Muskuloskeletal CP - myofascial strain, costochondritis *GERD PLAN: - cardiac enzymes x 2 q 8 hr - EKG now and in AM - ASA - O2 by NC to keep SpO2 greater than 92% - UA - CBCD, BMP in AM - Fasting lipids - Tylenol 650 mg PO q 4-6 hr PRN headache - The patient was started on heparin drip as per cardiology recommendation - 2D Echo - Cardiology consult (2) Atrial fibrillation Current Visit: No Status: Chronic Assessment and plan: Currently rate controlled continue with aspirin. Qualifiers: Atrial fibrillation type: paroxysmal Qualified Code(s): I48.0 - Paroxysmal atrial fibrillation (3) COPD (chronic obstructive pulmonary disease) Current Visit: No Status: Chronic Assessment and plan: continue home bronchodilators, Singulair as well as oxygen as needed Qualifiers: COPD type: unspecified COPD Qualified Code(s): J44.9 - Chronic obstructive pulmonary disease, unspecified (4) HTN (hypertension) Current Visit: No Status: Chronic Assessment and plan: Currently controlled we will continue with home medications Qualifiers: Hypertension type: essential hypertension Qualified Code(s): I10 - Essential (primary) hypertension (5) Acute kidney injury Current Visit: Yes Status: Acute Assessment and plan: most likely secondary to prerenal etiology, we'll repeat BMP, avoid nephrotoxins and renal dosing of medication as the current eGFR (6) DVT prophylaxis Current Visit: Yes Status: Acute Assessment and plan: Continue with heparin subcutaneous - Time Spent With Patient Total time spent is greater than 50% in coordination of care (as documented) at patient's floor/unit and/or counseling patient:
[2017-11-12] MEDS ORDERED: Nitroglycerin 0.4 MG TAB.SUBL SL PRN (23:19)
[2017-11-12] MEDS ORDERED: *HR* OxyCODONE/APAP 7.5/325 TABLET PO PRN (23:19)
[2017-11-12] MEDS ORDERED: Albuterol 2.5 MG/3 ML NEBULIZER IH PRN (23:19)
[2017-11-12] MEDS ORDERED: Acetaminophen 325 MG TABLET PO PRN ×2 (23:21→23:31)
[2017-11-12] MEDS ORDERED: *HR* HYDROcodone/Acet 5/325 mg TABLET PO PRN ×2 (23:21→23:31)
[2017-11-12] MEDS ORDERED: Naloxone 0.4 MG/ML INJ IVP PRN ×2 (23:21→23:31)
[2017-11-12] MEDS ORDERED: *HR* OxyCODONE Immed Rel 5 MG TABLET PO PRN (23:31)
[2017-11-13 01:41] LABS: Chol/HDL Ratio 4.7 (0-4.9); Cholesterol 197 mg/dL (< 200); HDL Cholesterol 42 mg/dL (40-59); Triglycerides 403 mg/dL (< 150); Troponin I < 0.03 ng/mL (< 0.04)
[2017-11-13 06:48] LABS: Hematocrit 43.1 % (37.5-50.1); Hemoglobin 14.2 g/dL (12.9-16.9); Mean Corpuscular HGB Conc 32.9 g/dL (31.6-35.5); Mean Corpuscular Hemoglobin 31.1 pg (28.0-33.3); Mean Corpuscular Volume 94.3 fL (83.0-100.0); Platelet Count 209 K/mcL (140-400); Red Blood Count 4.57 M/mcL (4.19-5.50); Red Cell Distribution Width 14.5 % (11.5-14.5)
[2017-11-13 06:56] LABS: Prothrombin Time 10.9 Seconds (9.4-12.1)
[2017-11-13 07:08] LABS: Activated Partial Thrombo Time 62.7 Seconds (26.0-36.0)
[2017-11-13 07:11] LABS: Alanine Aminotransferase 32 Units/L (7-52); Albumin 3.8 g/dL (3.5-5.7); Albumin/Globulin Ratio 1.4 (1.1-2.2); Alkaline Phosphatase 103 Units/L (34-104); Aspartate Amino Transferase 24 Units/L (13-39); BUN/Creatinine Ratio 17 (6-26); Bilirubin,Total 0.5 mg/dL (0.3-1.0); Blood Urea Nitrogen 22 mg/dL (8-23); Calcium 9.1 mg/dL (8.6-10.3); Carbon Dioxide 28 mEq/L (23-29); Chloride 102 mEq/L (98-107); Globulin 2.7 g/dL (2.4-3.5); Glucose 120 mg/dL (70-105); Magnesium 1.9 mg/dL (1.6-2.6); Osmolality,Calculated 291 (280-300); Phosphorous 3.6 mg/dL (2.7-4.5); Potassium 3.8 mEq/L (3.5-5.1); Sodium 138 mEq/L (136-145); Total Protein 6.5 g/dL (6.4-8.9); eGFR For African Americans > 60 (> 60); eGFR For Non-African Americans 57 (> 60)
[2017-11-13] MEDS ORDERED: Furosemide 40 MG TABLET PO SCH (08:00)
[2017-11-13] MEDS ORDERED: Gabapentin 300 MG CAPSULE PO SCH (09:00)
[2017-11-13] MEDS ORDERED: Fluticasone Propionate Nasal 50 MCG/SPRAY BOTTLE NS SCH (09:00)
[2017-11-13] MEDS ORDERED: Aspirin 81 MG TAB.CHEW PO SCH (09:00)
[2017-11-13] MEDS ORDERED: Loratadine 10 MG TABLET PO SCH (09:00)
[2017-11-13] MEDS ORDERED: Breo Ellipta 200-25 Mcg IH SCH (09:00)
[2017-11-13] MEDS ORDERED: Isosorbide MONOnitrate (24 HR) 60 MG TAB.ER.24H PO SCH (09:00)
--- NOTE | 2017-11-13 11:41 | Internal Med Progress Note ---
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 GERD musculoskeletal myofascial strain costochondritis We will consult cardiology as needed -Chest x-ray with no acute process (2) HTN (hypertension) Current Visit: No Status: Chronic Assessment and plan: Currently controlled we will continue with home medications Qualifiers: Hypertension type: essential hypertension Qualified Code(s): I10 - Essential (primary) hypertension (3) COPD (chronic obstructive pulmonary disease) Current Visit: No Status: Chronic Assessment and plan: No wheezing noted appears to be stable continue with bronchodilators, Singulair as well as oxygen as needed Qualifiers: COPD type: unspecified COPD Qualified Code(s): J44.9 - Chronic obstructive pulmonary disease, unspecified (4) Atrial fibrillation Current Visit: No Status: Chronic Assessment and plan: Currently rate controlled continue with aspirin. Qualifiers: Atrial fibrillation type: paroxysmal Qualified Code(s): I48.0 - Paroxysmal atrial fibrillation (5) Acute kidney injury Current Visit: Yes Status: Acute Assessment and plan: This appears to have resolved creatinine is 1.28 today we will continue to monitor Avoid nephrotoxins (6) DVT prophylaxis Current Visit: Yes Status: Acute Assessment and plan: Continue with heparin subcutaneous - Time Spent With Patient Total time spent is greater than 50% in coordination of care (as documented) at patient's floor/unit and/or counseling patient: - Subjective Interval history: She was seen and examined at bedside. Currently patient denies any chest pain or shortness of breath. - Constitutional Vitals: Temp Pulse Resp BP Pulse Ox 97.7 F 72 18 133/81 97 11/13/17 07:12 11/13/17 07:12 11/13/17 07:12 11/13/17 07:12 11/13/17 07:12 General appearance: Present: A&O X 3 - Head Head exam: Present: atraumatic, normocephalic - Eye Eye exam: Present: PERRL, conjuntiva pink, sclera anicteric Pupils: Present: PERRL - Neck Neck exam general surgery: Present: supple, trachea midline. Absent: lymphadenopathy - Respiratory Respiratory exam: Present: CTAB. Absent: accessory muscle use, rales, rhonchi, wheezes - Cardiovascular Cardiovascular exam: Present: RRR, +S1, +S2. Absent: diastolic murmur, gallop, rubs, systolic murmur - GI/Abdominal GI/Abdominal exam: Present: normal bowel sounds, soft, no peritoneal signs. Absent: distended, tenderness - Extremities Exam Extremities exam: Present: warm, radial pulses palpable and symmetrical. Absent : calf tenderness, cyanotic, pedal edema - Neurological Exam Neurological exam: Present: CN II-XII intact, oriented X3, no focal deficits. Absent: pronater drift, facial droop, speech deficit - Skin Skin exam: Present: dry, intact Internal Medicine: Result - Labs CBC & Chem 7: 11/13/17 06:19 11/13/17 06:19 Labs: Short CBC 11/13/17 Range/Units 06:19 WBC 5.5 (4.3-11.1) K/mcL Hgb 14.2 (12.9-16.9) g/dL Hct 43.1 (37.5-50.1) % Plt Count 209 (140-400) K/mcL BMP 11/13/17 06:19 Sodium 138 Potassium 3.8 Chloride 102 Carbon Dioxide 28 BUN 22 Creatinine 1.28 Glucose 120 H Calcium 9.1 Cardiac Enzymes 11/13/17 11/13/17 Range/Units 00:28 06:19 Troponin I < 0.03 < 0.03 (< 0.04) ng/mL Liver Function 11/13/17 Range/Units 06:19 Total Bilirubin 0.5 (0.3-1.0) mg/dL AST 24 (13-39) Units/L ALT 32 (7-52) Units/L Alkaline Phosphatase 103 (34-104) Units/L Albumin 3.8 (3.5-5.7) g/dL - ABG Interpretation ABG results: PT/INR, D-dimer PT 10.9 Seconds (9.4-12.1) 11/13/17 06:19 Consult Discharge Plan - Plan Referrals: NONE,PCP [Primary Care Provider] -
[2017-11-13 15:23] VITALS: BP 127/82
--- NOTE | 2017-11-13 16:22 | Discharge Summary ---
- NOTES TO OUTPATIENT PROVIDER Notes to Outpatient Provider: Advised patient to follow-up with cardiology troponins have been negative 3 Echo EF of 55% mild left ventricular diastolic dysfunction normal right ventricular structure and function no evidence of pulmonary hypertension no significant valvular dysfunction Orders not resulted at time of discharge: Pending orders 11/13/17 04:00 Urinalysis reflex Microscopic [URIN] AM 0400 11/13/17 15:00 EKG [ECG 12 lead ECG] [ECG] Routine Date of Encounter: 11/13/17 Time of Encounter: 16:20 - Discharge Diagnosis (1) Atypical chest pain Priority: Primary Status: Acute (2) HTN (hypertension) Priority: Secondary Status: Chronic Qualifiers: Hypertension type: essential hypertension Qualified Code(s): I10 - Essential (primary) hypertension (3) COPD (chronic obstructive pulmonary disease) Priority: Secondary Status: Chronic Qualifiers: COPD type: unspecified COPD Qualified Code(s): J44.9 - Chronic obstructive pulmonary disease, unspecified (4) Atrial fibrillation Priority: Secondary Status: Chronic Qualifiers: Atrial fibrillation type: paroxysmal Qualified Code(s): I48.0 - Paroxysmal atrial fibrillation (5) Acute kidney injury Priority: Secondary Status: Acute Hospital course: Mr. Gilbert is a 62 year old male past medical history of hypertension hyperlipidemia history of valvular disease history smoking with COPD presented with chest pain associated with dyspnea. Patient states that he had been working in his yard when he began to experience left-sided sharp stabbing chest pain which radiated around his left side to his back. He did have [place] 18 years ago with no stent placement he did undergo a left heart catheter approximately one year ago 11/05/2016 which did reveal minimal CAD disease (ventricle was normal and has normal contractility EF of 60%. ER physician did speak with cardiology Dr. Luis and recommended heparinization outpatient. EKG did show a incomplete right bundle branch block and T-wave inversions in lead 3 and V3. Troponins were negative 3 overnight patient did not have any chest pain. Echo was completed with EF of 55% normal LV chamber size mild LV diastolic dysfunction normal right ventricular structure and function no evidence of pulmonary hypertension no significant valvular dysfunction. I did speak cardiology SOFTWARE SUPPORT TECHNICIAN Jeramie Wood consult-reviewed case advised that since recent catheter was with minimal CAD advise follow-up as outpatient with cardiology and pursue other etiology of chest pain. During admission patient did have AK I patient admits that he had been working outside in the sun and had not been drinking any fluids. Advised patient to monitor fluid intake as well as monitor weight. Patient does have an appointment with nephrology in 2 weeks. Advised patient to keep appointment I did discuss results with the patient and his who is at bedside patient had appointment with PCP we will set up appointment with cardiology as outpatient. Advised patient he may need further workup for GERD which patient states he does take Prilosec as well as possible COPD. Patient verbalized understanding he is hemodynamically stable at this time and he is ready for discharge Discharge discussed with: patient - Time Spent with Patient Total time spent providing and/or coordinating discharge services: - Discharge Medications Home Medications: Albuterol Neb [Proventil Neb] 2.5 mg IH Q4HR PRN 11/03/16 [History] Albuterol Sulfate [Ventolin Hfa] 2 puff IH Q4H PRN 11/03/16 [History] Aspirin 81 mg PO DAILY 11/03/16 [History] Atorvastatin Calcium [Lipitor] 80 mg PO HS 11/03/16 [History] Cetirizine HCl [All Day Allergy] 10 mg PO DAILY 11/03/16 [History] DULoxetine [Cymbalta] 30 mg PO DAILY 11/03/16 [History] Etodolac [Lodine] 400 mg PO BID PRN 11/03/16 [History] Fluticasone Propionate Nasal [Flonase] 2 spray NS DAILY 11/03/16 [History] Fluticasone/Vilanterol [Breo Ellipta 200-25 Mcg INH] 1 puff IH DAILY 11/03/16 [ History] Gabapentin [Neurontin] 600 mg PO TID 11/03/16 [History] Isosorbide MONOnitrate (24 HR) [Imdur] 60 mg PO DAILY 11/03/16 [History] Levothyroxine [Synthroid] 112 mcg PO 0630 11/03/16 [History] Lisinopril [Zestril] 5 mg PO DAILY 11/03/16 [History] Montelukast [Singulair] 10 mg PO DAILY 11/03/16 [History] Nitroglycerin [Nitrostat] 0.4 mg SL AD PRN 11/03/16 [History] Omeprazole [PriLOSEC] 20 mg PO DAILY 11/03/16 [History] Oxycodone HCl/Acetaminophen [Percocet 7.5-325 mg Tablet] 1 tab PO Q8-12H PRN 07/18 [History] Furosemide [Lasix] 40 mg PO BID 11/12/17 [History] Allergies/Adverse Reactions: 3 Allergy/AdvReac Type Severity Reaction Status Date / Time ceftriaxone [From Rocephin] Allergy Hives Verified 11/03/16 08:01 celecoxib [From Celebrex] Allergy Hives Verified 11/03/16 08:01 methocarbamol [From Robaxin] Allergy Hives Verified 11/03/16 08:01 morphine Allergy Hives Verified 11/03/16 08:01 moxifloxacin [From Avelox] Allergy Hives Verified 11/03/16 08:01 Penicillins Allergy Swelling Verified 11/03/16 08:01 of Lip/Tongue/Throat Sulfa (Sulfonamide Allergy Hives Verified 11/03/16 08:01 Antibiotics) tramadol AdvReac Vomiting Verified 11/03/16 08:01 Date of admission: 11/12/17 16:40 Primary care physician: PCP NONE Discharging clinician: Chantel De La Garza Anticipated date of discharge: 11/13/17 - Constitutional Vitals: Temp Pulse Resp BP Pulse Ox 97.5 F L 74 16 127/82 97 11/13/17 15:22 11/13/17 15:22 11/13/17 15:22 11/13/17 15:22 11/13/17 15:22 General appearance: Present: A&O X 3 - Head Head exam: Present: atraumatic, normocephalic - Eye Eye exam: Present: PERRL, conjuntiva pink, sclera anicteric Pupils: Present: PERRL - Neck Neck exam general surgery: Present: supple, trachea midline. Absent: lymphadenopathy - Respiratory Respiratory exam: Present: CTAB. Absent: accessory muscle use, rales, rhonchi, wheezes - Cardiovascular Cardiovascular exam: Present: RRR, +S1, +S2. Absent: diastolic murmur, gallop, rubs, systolic murmur - GI/Abdominal GI/Abdominal exam: Present: normal bowel sounds, soft, no peritoneal signs. Absent: distended, tenderness - Extremities Exam Extremities exam: Present: warm, radial pulses palpable and symmetrical. Absent : calf tenderness, cyanotic, pedal edema - Neurological Exam Neurological exam: Present: CN II-XII intact, oriented X3, no focal deficits. Absent: pronater drift, facial droop, speech deficit - Skin Skin exam: Present: dry, intact - Patient Status Disposition: Home, Self-Care Condition: Fair Functional capacity at discharge: independent ambulation Overall status at discharge: patient is back to baseline - Discharge Instructions Instructions: Chest Pain (DC) Follow Up With: NONE,PCP [Primary Care Provider] - - Diet and Activity Activity: increase activity as tolerated Diet: advance to your usual diet
--- NOTE | 2017-11-13 18:08 | Electrocardiograph Report ---
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
--- NOTE | 2017-11-16 11:19 | Electrocardiograph Report ---
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
== END 2017-11-13 17:26 | disposition home or self-care (01) ==
LOC: EMEROO 14:52 → 3BNU 14:52
PROVIDERS: ADMIT Internal Medicine Nephrology; ATTEND Internal Medicine Nephrology

== ENCOUNTER 2018-01-13 07:03 | Inpatient (IN) ==
--- NOTE | 2018-01-12 21:59 | Discharge Summary ---
<Yann Peters - Last Filed: 01/13/18 08:45> Orders not resulted at time of discharge: Pending orders 01/13/18 00:01 XR shoulder complete RT [XR] Routine H/H [Hemoglobin and Hematocrit] [HEME] Routine Date of Encounter: 01/13/18 - Discharge Diagnosis (1) Obesity (BMI 30.0-34.9) Priority: Secondary Status: Chronic (2) Rotator cuff arthropathy of right shoulder Priority: Primary Status: Chronic (3) Status post reverse arthroplasty of right shoulder Priority: Primary Status: Acute (4) Symptomatic bradycardia Priority: Secondary Status: Chronic (5) Aortic valve defect Priority: Secondary Status: Chronic (6) Atrial fibrillation Priority: Secondary Status: Chronic Qualifiers: Atrial fibrillation type: unspecified Qualified Code(s): I48.91 - Unspecified atrial fibrillation (7) COPD (chronic obstructive pulmonary disease) Priority: Secondary Status: Chronic Qualifiers: COPD type: unspecified COPD Qualified Code(s): J44.9 - Chronic obstructive pulmonary disease, unspecified (8) HTN (hypertension) Priority: Secondary Status: Chronic Qualifiers: Hypertension type: essential hypertension Qualified Code(s): I10 - Essential (primary) hypertension - Hospital Course Hospital course: Mr. Gilbert is a 62 year old male - Time Spent with Patient Total time spent providing and/or coordinating discharge services: - Discharge Medications Home Medications: Aspirin 81 mg PO DAILY 11/03/16 [History] Cetirizine HCl [All Day Allergy] 10 mg PO DAILY 11/03/16 [History] Fluticasone Propionate Nasal [Flonase] 2 spray NS DAILY 11/03/16 [History] Gabapentin [Neurontin] 600 mg PO TID 11/03/16 [History] Isosorbide MONOnitrate (24 HR) [Imdur] 60 mg PO DAILY 11/03/16 [History] Levothyroxine [Synthroid] 112 mcg PO 0630 11/03/16 [History] Lisinopril [Zestril] 5 mg PO DAILY 11/03/16 [History] Nitroglycerin [Nitrostat] 0.4 mg SL AD PRN 11/03/16 [History] Omeprazole [PriLOSEC] 20 mg PO DAILY 11/03/16 [History] Oxycodone HCl/Acetaminophen [Percocet 7.5-325 mg Tablet] 1 tab PO Q8-12H PRN 07/18 [History] Furosemide [Lasix] 40 mg PO BID 11/12/17 [History] Albuterol Neb [Proventil Neb] 3 ml IN TID PRN 01/13/18 [History] Atorvastatin [Lipitor] 40 mg PO HS 01/13/18 [History] Cholecalciferol (D-3) [Vitamin D] 1,000 unit PO DAILY 01/13/18 [History] Escitalopram [Lexapro] 10 mg PO DAILY 01/13/18 [History] Fluticasone/Vilanterol [Breo Ellipta 200-25 Mcg INH] 1 each IH DAILY 01/13/18 [ History] OxyCODONE Immed Rel [Roxicodone 5 MG] 5 mg PO Q6HR PRN 7 Days #28 tablet [Rx] Spironolactone [Aldactone] 25 mg PO DAILY 01/13/18 [History] Allergies/Adverse Reactions: 3 Allergy/AdvReac Type Severity Reaction Status Date / Time ceftriaxone [From Rocephin] Allergy Hives Verified 01/13/18 17:13 celecoxib [From Celebrex] Allergy Hives Verified 01/13/18 17:13 methocarbamol [From Robaxin] Allergy Hives Verified 01/13/18 17:13 morphine Allergy Hives Verified 01/13/18 17:13 moxifloxacin [From Avelox] Allergy Hives Verified 01/13/18 17:13 Penicillins Allergy Swelling Verified 01/13/18 17:13 of Lip/Tongue/Throat Sulfa (Sulfonamide Allergy Hives Verified 01/13/18 17:13 Antibiotics) ondansetron [From Zofran] AdvReac Rash Verified 01/13/18 17:13 tramadol AdvReac Vomiting Verified 01/13/18 17:13 Primary care physician: Dru Vargas MD - Patient Status Disposition: Home, Self-Care Condition: Good - Discharge Instructions Follow Up With: Dru Vargas MD [Primary Care Provider] - Additional Instructions: Discharge Instructions: Total Shoulder Please call [facility] ([phone]), your Primary Care Physician, or report to the Emergency Room if you have any of the following symptoms: Nausea, vomiting, fever greater that 101.5, swelling, chest pain, shortness of breath, increased pain/redness/drainage/odor for your incision site, numbness/ tingling, or any other concerning symptoms. ACTIVITY: Always keep your arm in the sling. Do not raise your arm away from your body. Do not use your arm to help with getting in or out of bed. No weight bearing permitted. Only perform those exercises given to you by your therapist. Incentive Spirometer 10 times an hour. MEDICATIONS: Upon discharge resume your home medications. Take all the medications as prescribed. Take a stool softener if taking narcotic pain medications. Stool softeners are only effective if you drink enough fluids. Drink 6-8 glass of water or fluids a day, unless this is not allowed for another health problem. Despite using stool softeners, if you haven't had a bowel movement in 3 days, please switch to a gentle laxative. Gentle laxatives are sold over the counter. You should have a bowel movement within 24 hours, if not call the office. You will be discharged from the hospital with a prescription for pain medication. You are encouraged to decrease the use of narcotic pain medication as tolerated. Should you require a refill, please call the office. [facility] prescribes narcotic pain medication for only 4-6 weeks after surgery. If you require pain medication beyond this time period, you may be referred to your Primary Care Physician or to the Pain Clinic for further evaluation. Plan ahead for refills on pain medication as many narcotics either need to be picked up at the office or mailed. It is best to call 48-72 hours in advance of needing a prescription refill so you don't run out of medication. To help control the post-operative pain, you may take NSAIDs (Aleve,Advil, Motrin, Ibuprofen, Naprosyn) or Tylenol as prescribed on the bottle in addition to the pain medication. WOUND CARE: Leave the dressing on for 7-10 days. You may change the dressing if it becomes saturated greater than 50%. Do not get the dressing wet at anytime. Wash your hands with antibacterial soap, rinse and dry prior to any wound care. If you have dania the visiting nurse or rehab facility can remove the stapes 10-14 days after surgery and place steri-strips across the wound. Leave the steri-strips in place until they fall off on their own. You may let water from the shower run on top of the steri-strips. If you do not have a visiting nurse or rehab facility, you will need to return to the office at 10-14 days for the dania to be removed. If you have itching or redness around the dressing call the office. FOLLOW-UP: Please follow up with your surgeon in the orthopedic clinic, as scheduled <OttoLaura L - Last Filed: 01/14/18 13:02> Date of Encounter: 01/13/18 Time of Encounter: 13:00 - Discharge Diagnosis (1) Rotator cuff arthropathy of right shoulder Priority: Primary Status: Chronic (2) Status post reverse arthroplasty of right shoulder Priority: Primary Status: Acute (3) Atrial fibrillation Priority: Secondary Status: Chronic Qualifiers: Atrial fibrillation type: unspecified (4) COPD (chronic obstructive pulmonary disease) Priority: Secondary Status: Chronic Qualifiers: COPD type: unspecified COPD Qualified Code(s): J44.9 - Chronic obstructive pulmonary disease, unspecified (5) HTN (hypertension) Priority: Secondary Status: Chronic Qualifiers: Hypertension type: essential hypertension Qualified Code(s): I10 - Essential (primary) hypertension - Hospital Course Hospital course: Mr. Gilbert is a 62 year old male, s/p TSR from 01/13 - Discharge today in stable condition. Afebrile, vital signs stable. Vital Signs Temp Pulse Resp BP Pulse Ox 01/13/18 16:07 98.8 F 76 18 139/75 95 01/13/18 14:35 98.8 F 72 18 131/70 94 Pain control: adequate Participating in PT.~ All questions and concerns addressed. Educated on use of incentive spirometer. Encouraged ambulation and proper hydration.~ Patient educated on post-operative restrictions and post-operative care.~ Assessment and plan: Continue with postoperative care Discharge plan: Home, discharge today. - Time Spent with Patient Total time spent providing and/or coordinating discharge services: Date of admission: 01/13 Primary care physician: Dru Vargas MD Anticipated date of discharge: 01/13/18 - Patient Status Overall status at discharge: patient is progressing back to baseline - Diet and Activity Activity: as per physical therapy
[2018-01-13] MEDS ORDERED: Albuterol 2.5 MG/3 ML NEBULIZER ONE (07:45)
[2018-01-13] MEDS ORDERED: Albuterol 2.5 MG/3 ML NEBULIZER IH ONE (07:49)
[2018-01-13] MEDS ORDERED: Clindamycin 900 MG/50 ML 900 MG/50 ML IV.SOLN IVPB ONE (07:49)
--- NOTE | 2018-01-13 07:55 | History & Physical Report ---
Date of Encounter: 01/13/18 Time of Encounter: 07:54 24 Hour HP Update - Instructions Instructions: If the History and Physical is less than 30 days old and was completed prior to A.M. admission and or procedure and has NOT been updated on calendar day of procedure please complete this update prior to performing procedure. - Update Patient reports changes in Medical Condition: No Changes in examination, assessment, or condition: No Changes in Medication: No Preop tests/diagnostics Reviewed: Yes Surgery Remains Indicated: Yes Consent for Planned Operative Procedure(s) Verified: Yes - Pre-Operative Checklist Preoperative Checklist Indicated: No Prophylactic Antibiotic Ordered: Yes Is VTE Prophylaxis Indicated?: Yes
--- NOTE | 2018-01-13 07:57 | Anesthesia Evaluation PreOp ---
Date of Encounter: 01/13/18 Time of Encounter: 08:10 - Past History Planned Operation: RIGHT REVERSE TSA Cardiac History: HTN, Hyperlipidemia, Other (PERIPHERAL EDEMA) Pulmonary History: COPD Other Medical History: Thyroid, GERD Anesthesia History: No Prior Anesthetic Complications, Past Anesthesia (hernia gall bladder right hip replacement rotator cuff tear repair) Alcohol Use: none Drug use: none Medications and Allergies Albuterol Neb [Proventil Neb] 2.5 mg IH Q4HR PRN 11/03/16 [History] Albuterol Sulfate [Ventolin Hfa] 2 puff IH Q4H PRN 11/03/16 [History] Aspirin 81 mg PO DAILY 11/03/16 [History] Atorvastatin Calcium [Lipitor] 80 mg PO HS 11/03/16 [History] Cetirizine HCl [All Day Allergy] 10 mg PO DAILY 11/03/16 [History] DULoxetine [Cymbalta] 30 mg PO DAILY 11/03/16 [History] Etodolac [Lodine] 400 mg PO BID PRN 11/03/16 [History] Fluticasone Propionate Nasal [Flonase] 2 spray NS DAILY 11/03/16 [History] Fluticasone/Vilanterol [Breo Ellipta 200-25 Mcg INH] 1 puff IH DAILY 11/03/16 [ History] Gabapentin [Neurontin] 600 mg PO TID 11/03/16 [History] Isosorbide MONOnitrate (24 HR) [Imdur] 60 mg PO DAILY 11/03/16 [History] Levothyroxine [Synthroid] 112 mcg PO 0630 11/03/16 [History] Lisinopril [Zestril] 5 mg PO DAILY 11/03/16 [History] Montelukast [Singulair] 10 mg PO DAILY 11/03/16 [History] Nitroglycerin [Nitrostat] 0.4 mg SL AD PRN 11/03/16 [History] Omeprazole [PriLOSEC] 20 mg PO DAILY 11/03/16 [History] Oxycodone HCl/Acetaminophen [Percocet 7.5-325 mg Tablet] 1 tab PO Q8-12H PRN 07/18 [History] Furosemide [Lasix] 40 mg PO BID 11/12/17 [History] 3 Allergy/AdvReac Type Severity Reaction Status Date / Time ceftriaxone [From Rocephin] Allergy Hives Verified 11/28/17 08:23 celecoxib [From Celebrex] Allergy Hives Verified 11/28/17 08:23 methocarbamol [From Robaxin] Allergy Hives Verified 11/28/17 08:23 morphine Allergy Hives Verified 11/28/17 08:23 moxifloxacin [From Avelox] Allergy Hives Verified 11/28/17 08:23 Penicillins Allergy Swelling Verified 11/28/17 08:23 of Lip/Tongue/Throat Sulfa (Sulfonamide Allergy Hives Verified 11/28/17 08:23 Antibiotics) ondansetron [From Zofran] AdvReac Rash Verified 01/13/18 08:16 tramadol AdvReac Vomiting Verified 11/28/17 08:23 - Meds/Allergy Pre-op Review Medications Reviewed: Yes Allergies Reviewed: Yes Anesthesia Results - Labs Laboratory Last Values WBC 8.3 K/mcL (4.3-11.1) 01/08/18 10:02 RBC 4.91 M/mcL (4.19-5.50) 01/08/18 10:02 Hgb 15.2 g/dL (12.9-16.9) 01/08/18 10:02 Hct 46.5 % (37.5-50.1) 01/08/18 10:02 MCV 94.7 fL (83.0-100.0) 01/08/18 10:02 MCH 31.0 pg (28.0-33.3) 01/08/18 10:02 MCHC 32.7 g/dL (31.6-35.5) 01/08/18 10:02 RDW 13.7 % (11.5-14.5) 01/08/18 10:02 Plt Count 251 K/mcL (140-400) 01/08/18 10:02 MPV 9.9 fL (9.4-12.4) 01/08/18 10:02 Immature Gran % 0.4 % (0-4) 01/08/18 10:02 Seg Neutrophils % 60.0 % 01/08/18 10:02 Lymphocytes % 27.4 % 01/08/18 10:02 Monocytes % 8.4 % 01/08/18 10:02 Eosinophils % 2.7 % 01/08/18 10:02 Basophils % 1.1 % 01/08/18 10:02 Neutrophils # 5.0 K/mcL (1.6-8.9) 01/08/18 10:02 Lymphocytes # 2.3 K/mcL (0.6-4.6) 01/08/18 10:02 Monocytes # 0.7 K/mcL (0.0-1.3) 01/08/18 10:02 Eosinophils # 0.2 K/mcL (0.0-0.6) 01/08/18 10:02 Basophils # 0.1 K/mcL (0.0-0.2) 01/08/18 10:02 Sodium 137 mEq/L (136-145) 01/08/18 10:02 Potassium 4.1 mEq/L (3.5-5.1) 01/08/18 10:02 Chloride 102 mEq/L (98-107) 01/08/18 10:02 Carbon Dioxide 27 mEq/L (23-29) 01/08/18 10:02 BUN 17 mg/dL (8-23) 01/08/18 10:02 Creatinine 1.37 mg/dL (0.70-1.30) H 01/08/18 10:02 Est GFR ( Amer) > 60 (> 60) 01/08/18 10:02 Est GFR (Non-Af Amer) 53 (> 60) L 01/08/18 10:02 BUN/Creatinine Ratio 12 (6-26) 01/08/18 10:02 Glucose 110 mg/dL (70-105) H 01/08/18 10:02 Calculated Osmolality 286 (280-300) 01/08/18 10:02 Uric Acid 6.7 mg/dL (2.3-7.6) 01/08/18 10:02 Calcium 9.8 mg/dL (8.6-10.3) 01/08/18 10:02 Phosphorus 3.0 mg/dL (2.7-4.5) 01/08/18 10:02 Albumin 4.2 g/dL (3.5-5.7) 01/08/18 10:02 Urine Color Yellow (Yellow) 01/08/18 10:02 Urine Clarity Clear (Clear) 01/08/18 10:02 Urine pH 6.5 pH Units (5.0-8.0) 01/08/18 10:02 Ur Specific [place] 1.010 (1.010-1.025) 01/08/18 10:02 Urine Protein Negative mg/dL (Neg-Trace) 01/08/18 10:02 Urine Glucose (UA) Normal mg/dL (Normal) 01/08/18 10:02 Urine Ketones Negative mg/dL (Negative) 01/08/18 10:02 Urine Blood Negative (Negative) 01/08/18 10:02 Urine Nitrite Negative (Negative) 01/08/18 10:02 Urine Bilirubin Negative (Negative) 01/08/18 10:02 Urine Urobilinogen Normal mg/dL (Normal) 01/08/18 10:02 Ur Leukocyte Esterase Negative (Negative) 01/08/18 10:02 Urine Creatinine 11 mg/dL 01/08/18 10:02 Urine Microalbumin < 7 mg/L 01/08/18 10:02 Microalb/Creat Ratio TNP 01/08/18 10:02 Protein/Creatinin Ratio TNP 01/08/18 10:02 Urine Total Protein < 4 mg/dL (1-14) 01/08/18 10:02 - Imaging Additional studies: TTE 11/03/2016 LVEF 50%. Normal LV chamber size and wall thickness. Not all LV segments were well visualized. Overall, LVEF appeared to be low normal. Normal left ventricular diastolic function. Normal right ventricular structure and function. Mild aortic regurgitation. Stress 11/04/2016 Pharmacologic stress ECG is non-diagnostic for ischemia due to submaximal HR. Gated EF = 55%. Medium sized, moderate intensity, reversible perfusion defect involving the basal to mid inferior and adjacent inferoseptal and inferolateral segments. Findings are consistent with ischemia. [facility] 11/04/2016 Minimal atherosclerotic coronary artery disease. The left ventricle is normal and has normal contractility EF 60%. Anesthesia Exam O2 Sat Height 1.73 m Height 1.73 m Height 1.73 m Weight 103.873 kg Weight 103.873 kg Weight 103.873 kg O2 Sat by Pulse Oximetry 96 Vital Signs Temp Pulse Resp BP Pulse Ox 97.9 F 63 18 135/80 96 01/13/18 07:20 01/13/18 07:20 01/13/18 07:20 01/13/18 07:20 01/13/18 07:20 NPO (# of Hours): 8 - HEENT Mallampati: II Teeth: Edentulous Oral Opening: Greater than 3 - Cardiac Rhythm: Regular - Pulmonary Breath Sounds: bilateral Clear Respiratory Effort: Symmetrical Anesthesia Assess/Plan ASA Score: 3 Modified Bitely Scale for Level of Consciousness: Cooperative, oriented, and tranquil Anesthetic Plan: General, Regional Monitoring Plan: Standard Monitors Recovery Plan: PACU Anes Supervising Prov Stmt: My[employer] LIST NOT UPDATED THIS VISIT PATIENT'S CHART AND CURRENT MEDICATIONS REVIEWED
[2018-01-13] MEDS ORDERED: Ringers Solution, Lactated 1,000 ML IVC SCH ×2 (08:00→11:32)
[2018-01-13] MEDS ORDERED: *HR* FentaNYL (PF) 100 MCG/2 ML VIAL ONE (08:18)
[2018-01-13] MEDS ORDERED: Lidocaine -MPF 2% 2 ML VIAL ONE ×2 (08:18→10:37)
[2018-01-13] MEDS ORDERED: *HR* Propofol 200 MG/20 ML VIAL IVP ONE (08:18)
[2018-01-13] MEDS ORDERED: Ondansetron 4 MG/2 ML VIAL ONE (08:18)
[2018-01-13] MEDS ORDERED: *HR* Succinylcholine 200 MG/10 ML VIAL IVP ONE (08:18)
[2018-01-13] MEDS ORDERED: *HR* Midazolam HCl 2 MG/2 ML VIAL ONE (08:18)
[2018-01-13] MEDS ORDERED: *HR* Labetalol 20 MG/4 ML SYRINGE IVP PRN (08:24)
[2018-01-13] MEDS ORDERED: *HR* Promethazine 25 MG/ML VIAL IVP PRN (08:24)
[2018-01-13] MEDS ORDERED: ROPIVACAINE HCL/PF 0.5% 30 ML VIAL ONE (08:35)
--- NOTE | 2018-01-13 09:10 | Anesthesia Procedures ---
Date of Encounter: 01/13/18 Time of Encounter: 09:08 Procedures: Anesthesia - Nerve Block Procedure Date: 01/13/18 Time: 09:08 Pre-op Diagnosis: Right Rotator Cuff Arthropathy Surgical Procedure: Reverse Right Total Shoulder Arthropalsty Checklist: Correct Patient Identifier, Correct procedure, History checked Correct side: Right Blood Thinner: No Monitor Applied: BP, Pulse Oximetry Supplemental Oxygen via Nasal Cannula (L/min): 2 Sedation: Versed (mg): 2 Sedation: Fentanyl (mcg): 100 Indication: Post Op Analgesia Pre-op Neuro Deficits: No Block Type: Supraclavicular (Ropivacaine 0.5% 23 ml), Other (SCP ropivacaine 0.5 % 7ml) Catheter placed: No Sterile Technique: Yes Ultrasound used: Yes Anatomy identified: Yes Visual spread of Local: Yes Neuro Stimulation: No Blood on Needle Aspiration: No Smooth Injection of Local: Yes Pain with Injection of Local: No Prep: Chlorhexadine Needle: 22 x 50 mm Stimuplex Local: Ropivacaine (0.5% 30ml total given in Supraclavicular and SCP blocks) Volume (cc): 30ml Number of Attempts: 1 Complications: None/effective block Vitals: See Monitoring RN Vitals
[2018-01-13] MEDS ORDERED: Acetaminophen IV 1,000 MG/100 ML INFUS..BTL ONE (09:29)
[2018-01-13] MEDS ORDERED: Dexamethasone 4 MG/ML VIAL ONE (09:45)
[2018-01-13] MEDS ORDERED: Lidocaine -MPF 4% 5 ML AMPUL ONE (09:49)
[2018-01-13] MEDS ORDERED: *HR* OxyCODONE Immed Rel 5 MG TABLET PO PRN ×2 (10:29→11:32)
[2018-01-13] MEDS ORDERED: Ketorolac 30 MG/ML VIAL ONE (10:31)
--- NOTE | 2018-01-13 10:32 | Orthopedic Operative Note ---
Date of procedure: 01/13/18 Pre-op diagnosis: Right shoulder cuff tear arthropathy Post-op diagnosis: same Procedure: Procedure: Total Shoulder Replacment Reverse, right Estimated blood loss: 100 cc Hardware: Metal and polyethylene replacement: Arthrex 28+2, 30 mm screw glenoid baseplate, 2 4.5 screws. 2 5.5 screw, 42+4 glenosphere, 9 humeral stem, poly insert 3 and 6 metal Exam Under anesthesia: Full motion no stability Procedural Notes: Irreparable tear supraspinatus tendon Operative procedure: The patient was brought to the operating room and placed on the operating room table. After general anesthesia was administered the operative shoulder was examined. Findings were noted. The patient was placed in the modified beachchair position. All pressure points were padded appropriately. And the head was stabilized in the neutral position. The operative extremity was prepped and draped in the sterile surgical fashion. The patient received IV antibiotics prior to skin incision. A standard deltopectoral approach was made to the operative shoulder. Incision was made to the skin and subcutaneous tissue,hemo stasis was obtained with Bovie cautery. Using careful blunt dissection the cephalic vein was identified and mobilized medially. The deltopectoral interval was developed and the clavipectoral fascia was incised. The subscap was released off the lesser tuberosity and tagged with #2 FiberWire subscap was irreparable. The humerus was dislocated patient noted to have irreparable tear supraspinatus tendon, and the humeral cut was made along the anatomic neck. Anterior and posterior Bankart retractors were placed to expose the glenoid. The glenoid guide was seated and the centering hole was made. It was reamed with the appropriate reamer. The 28 mm +2, 30 mm screw was seated and secured with (2) 4.5 screws and 2 5.5 screw. The baseplate was irrigated and dried and the 42+4 Glenosphere was seated and secured with the Carver taper. The Carver taper was tested and found to be secure the humerus was redislocated and prepared with the diaphyseal reamers, followed by a broaching process up to the appropriate size 9 in the patient's anatomic version. The metaphyseal reamer was then utilized. Trial reduction found the shoulder to be relocatable. Trial components were removed and The appropriate 9 stem was impacted in place in the patient's anatomic version. Trial reduction found the shoulder to be relocatable and stable with the appropriate 6 metal 3 Vesna Trial component was removed and the real implant was seated and secured the shoulder was reduced. The shoulder had excellent motion and excellent stability and no evidence of dislocation. The deep tissue was irrigated with pulse irrigation. The PA close the shoulder. The deltopectoral interval was closed with a running #1 PDS suture, subcutaneous tissue was irrigated and closed with 0 PDS suture, the skin was closed with Dermabond. The patient was placed in a sterile dressing, abduction brace and extubated. The patient was then transferred to the recovery room in stable condition. Anesthesia: GETA Surgeon: Yann Peters Was there an outreach assistant present: No Estimated blood loss (cc): 100 Condition: stable Disposition: PACU
[2018-01-13] MEDS ORDERED: Spironolactone 25 MG TABLET PO SCH (11:32)
[2018-01-13] MEDS ORDERED: MOM Conc 10 ML UD.LIQ PO PRN (11:32)
[2018-01-13] MEDS ORDERED: Albuterol 2.5 MG/3 ML NEBULIZER IH PRN (11:32)
[2018-01-13] MEDS ORDERED: (Fluticasone/Vilanterol [Breo Ellipta 200-25 Mcg Inh] IH SCH (11:32)
[2018-01-13] MEDS ORDERED: traMADol 50 MG TABLET PO PRN (11:32)
[2018-01-13] MEDS ORDERED: Naloxone 0.4 MG/ML INJ IVP PRN (11:32)
[2018-01-13] MEDS ORDERED: Isosorbide MONOnitrate (24 HR) 60 MG TAB.ER.24H PO SCH (11:32)
[2018-01-13] MEDS ORDERED: *HR* OxyCODONE/APAP 5/325 TABLET PO PRN (11:32)
[2018-01-13] MEDS ORDERED: Sennosides 8.6 MG TABLET PO PRN (11:32)
[2018-01-13] MEDS ORDERED: Loratadine 10 MG TABLET PO SCH (11:32)
[2018-01-13] MEDS ORDERED: Fluticasone Propionate Nasal 50 MCG/SPRAY BOTTLE NS SCH (11:32)
[2018-01-13] MEDS ORDERED: Ondansetron 4 MG/2 ML VIAL IVP PRN (11:32)
[2018-01-13] MEDS ORDERED: Nitroglycerin 0.4 MG TAB.SUBL SL PRN (11:32)
[2018-01-13] MEDS ORDERED: Aspirin 81 MG TAB.CHEW PO SCH (11:32)
[2018-01-13] MEDS ORDERED: Furosemide 40 MG TABLET PO SCH (11:32)
[2018-01-13] MEDS ORDERED: Temazepam 15 MG CAPSULE PO PRN (11:32)
[2018-01-13 12:06] LABS: Hematocrit 42.3 % (37.5-50.1); Hemoglobin 13.8 g/dL (12.9-16.9)
[2018-01-13] MEDS: Gabapentin 300 MG CAPSULE PO SCH ×2 (13:16→14:29)
--- NOTE | 2018-01-13 14:39 | Anesthesia Evaluation Post Op ---
Date of Encounter: 01/13/18 Time of Encounter: 11:20 - Discharge PostOp Status: Transfer Patient to floor (Patient's vital signs have been reviewed. Patient is stable postoperatively and has adequately recovered from anesthesia. Patient is determined to have stable airway patency and respiratory function including respiratory rate and oxygen saturation. Patient has a stable heart rate, blood pressure and adequate hydration. Patients mental status is acceptable. Patients temperature is appropriate. Pain and nausea are adequately controlled.)
[2018-01-13] MEDS ORDERED: *HR* Enoxaparin 30 MG/0.3 ML SYRINGE SQ ONE (15:47)
[2018-01-13] MEDS ORDERED: Clindamycin 900 MG/50 ML 900 MG/50 ML IV.SOLN IVPB SCH (16:00)
[2018-01-13 16:10] VITALS: BP 139/75
[2018-01-13] MEDS ORDERED: *HR* Enoxaparin 30 MG/0.3 ML SYRINGE SQ SCH (18:00)
== END 2018-01-13 17:11 | disposition home or self-care (01) | DRG 315 ==
LOC: SAMDAY 07:03 → 3NENU 11:28
PROVIDERS: ADMIT Orthopaedic Surgery; ATTEND Orthopaedic Surgery